=== PATIENT | male | born 1955 | race Hispanic/Latino ===

== ENCOUNTER 2017-03-17 10:33 | Outpatient (CLI) | payer BC ==
[2017-03-17 11:58] LABS: Anion Gap 11 mmol/L (10-20); BUN (Urea Nitrogen) 23 mg/dL (8.4-25.7); Calc. Creatinine Clearance 0 mL/min (70-130); Calcium 8.7 mg/dL (7.8-10.44); Carbon Dioxide 25 mmol/L (23-31); Chloride 108 mmol/L (98-107); Estimated GFR-MDRD 77
[2017-03-17 12:22] LABS: #Eosinphils 0.1 thou/uL (0.0-0.7); #Lymphocytes 1.1 thou/uL (1.20-3.40); #Monocytes 0.7 thou/uL (0.11-0.59); #Neutrophils 3.3 thou/uL (1.40-6.50); %Basophils 0.2 % (0.0-1.0); %Eosinophils 1.2 % (0.0-10.0); %Lymphocytes 20.8 % (21.0-51.0); %Monocytes 13.5 % (0.0-10.0); Hematocrit 23.4 % (42.0-52.0); Hypochromia MARKED = >30 cells (100X) (0-5/hpf); Mean Platelet Volume 8.5 fL (7.4-10.4); Microcytosis MODERATE=15-30 cells (100X) (0-5/hpf); Neutrophil 65 % (42-75); Ovalocytes MODERATE= 6-15 cells (100X) (0-1/hpf); Polychromasia SLIGHT = 2-3 cells (100X) (0-2/hpf); Red Blood Cell (RBC) Count 3.45 mill/uL (4.70-6.10); Schistocytes SLIGHT = 2-5 cells (100X) (0-1/hpf); White Blood Cell (WBC) Count 5.1 thou/uL (4.8-10.8)
[2017-03-18 10:19] LABS: Critical Call w/ Read Back 876274
== END 2017-03-17 10:34 | disposition home or self-care (01) ==
LOC: LABBT 10:33
PROVIDERS: ATTEND Specialist
DX: Z01.818 Encounter for other preprocedural examination (principal); K40.90 Unilateral inguinal hernia, without obstruction or gangrene, not specified as recurrent
CPT/HCPCS: 80048; 85025; 85060; 93005; 93010

== ENCOUNTER 2017-03-19 17:09 | Inpatient (IN) | payer BC ==
[2017-03-19 18:01] LABS: #Eosinphils 0.1 thou/uL (0.0-0.7); #Lymphocytes 1.2 thou/uL (1.20-3.40); #Monocytes 0.7 thou/uL (0.11-0.59); #Neutrophils 2.4 thou/uL (1.40-6.50); %Basophils 1.1 % (0.0-1.0); %Lymphocytes 26.8 % (21.0-51.0); %Monocytes 14.8 % (0.0-10.0); Hematocrit 22.3 % (42.0-52.0); Mean Platelet Volume 8.7 fL (7.4-10.4); Red Blood Cell (RBC) Count 3.31 mill/uL (4.70-6.10); White Blood Cell (WBC) Count 4.5 thou/uL (4.8-10.8)
[2017-03-19 18:23] LABS: ALT (SGPT) 34 U/L (8-55); AST (SGOT) 27 U/L (5-34); Alkaline Phosphatase 124 U/L (40-150); Anion Gap 10 mmol/L (10-20); BUN (Urea Nitrogen) 21 mg/dL (8.4-25.7); Bilirubin, Total 0.3 mg/dL (0.2-1.2); Calc. Creatinine Clearance 0 mL/min (70-130); Calcium 8.5 mg/dL (7.8-10.44); Carbon Dioxide 26 mmol/L (23-31); Chloride 109 mmol/L (98-107); Estimated GFR-MDRD 81; Globulin 3.2 g/dL (2.4-3.5); Protein, Total 6.8 g/dL (5.8-8.1)
[2017-03-19 19:16] LABS: Prothrombin Time 13.6 SEC (12.0-14.7)
[2017-03-19 21:09] LABS: IRF 0.477 Ratio (0.163-0.362); Reticulocyte Count 1.4 % (0.5-1.5)
[2017-03-19 21:19] LABS: Iron 14 ug/dL (65-175)
[2017-03-19 21:25] LABS: Troponin I Less than 0.010 ng/mL (< 0.028)
[2017-03-19 22:13] VITALS: BMI 33.5
--- NOTE | 2017-03-19 23:44 | HP ---
DATE OF ADMISSION: 03/19/2017 PRIMARY CARE PHYSICIAN: Dr. Castillo. PRIMARY SIDEROGRAPHER: Dr. Jani Weaver. CHIEF COMPLAINT: Abnormal labs. HISTORY OF PRESENT ILLNESS: Patient is a 62-year-old male with paroxysmal atrial fibrillation, on a nticoagulation, presented to the emergency room with abnormal labs. The patient is scheduled for inguinal surgery later this month. He underwent routine labs 2 days ag o that was consistent with hemoglobin 6.6. For this reason, he was advised to come to the emergency room for further workup. Patient has been complaining of exertional shortness of breath on bcvi-or-ylszvosk exertion. He als o had some nausea; however, denies any vomiting. He feels generally weak and fatigued. No hemateme sis, melena, hematoschezia reported. He denies any blood in the stool. No significant weight loss. No recent changes in his medications. He is currently off of aspirin and Xarelto since the 10th o f this month for prostate biopsy. In the emergency room, his initial vital signs showed temperature 98.3, respirations 19, pulse of 61 with a blood pressure 137/72 with O2 saturation 96% on room air. His repeat labs today showed hemo globin of 6.4 with MCV of 67.4, MCH of 19.4, RDW of 16.7 with reticulocyte of 1.4. His BUN was norm al. Stool for occult blood was negative. Blood transfusion has been ordered. PAST MEDICAL HISTORY: 1. Paroxysmal atrial fibrillation, currently on anticoagulation. 2. Hypertension. 3. Hyperlipidemia. 4. Obesity. 5. Enlarged prostate, currently followed by Dr. Sorto. Patient also has elevated PSA. 6. Coronary artery disease. 7. History of syncope while on amlodipine. 8. History of epididymitis, status post surgery. 9. Obstructive sleep apnea on CPAP. 10. Diverticulosis. PAST SURGICAL HISTORY: 1. Laparoscopic cholecystectomy. 2. Right epididymectomy. 3. TURP. 4. Right tympanoplasty. 5. Cardioversion. 6. Cardiac catheterization in 2006 that showed 50% mid LAD stenosis. The left main circumflex was normal. RCA showed 30% stenosis. 7. Colonoscopy in 2010 at [facility] that showed diverticulosis with some polyps. ALLERGIES: No known drug allergies. CURRENT HOME MEDICATIONS: 1. Amiodarone 200 mg in the morning and 100 mg bedtime. 2. Lisinopril 40 mg daily. 3. Hydralazine 150 mg b.i.d. 4. Aspirin 81 mg daily, currently on hold for prostate biopsy. 5. Xarelto 20 mg daily, currently on hold prostate biopsy. 6. Lipitor 80 mg at bedtime. 7. Coenzyme Q10 once daily. 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 He denies any histor y of smoking or drug use. He drinks alcohol very rarely. FAMILY HISTORY: Father in his 40s from coronary artery disease. He denies any history of colo vic malignancy. REVIEW OF SYSTEMS: The following complete review of systems was negative, unless otherwise mentione d in the HPI or below: Constitutional: Weight loss or gain, ability to conduct usual activities. Skin: Rash, itching. Eyes: Double vision, pain. ENT/Mouth: Nose bleeding, neck stiffness, pain, tenderness. Cardiovascular: Palpitations, dyspnea on exertion, orthopnea. Respiratory: Shortness of breath, wheezing, cough, hemoptysis, fever or night sweats. Gastrointestinal: Poor appetite, abdominal pain, heartburn, nausea, vomiting, constipation, or diar dina. Genitourinary: Urgency, frequency, dysuria, nocturia. Musculoskeletal: Pain, swelling. Neurologic/Psychiatric: Anxiety, depression. Allergy/Immunologic: Skin rash, bleeding tendency. PHYSICAL EXAMINATION: VITAL SIGNS: Showed temperature 98.3, respirations 19, pulse 61, blood pressure 137/72 with O2 satu ration 96% on room air. GENERAL: A 62-year-old male, in no apparent distress, denies any chest pain at this time. HEENT: Head: Atraumatic, normocephalic. Sclerae are anicteric. Moist mucous membranes. No oral lesion. NECK: Supple. No JVD appreciated. No carotid bruit. LUNGS: Clear to auscultation bilaterally. HEART: S1 and S2 present. Regular rate and rhythm. No murmurs, rubs, or gallops appreciated. ABDOMEN: Soft, nontender, bowel sounds present. EXTREMITIES: No edema or calf tenderness. NEUROLOGIC: Grossly nonfocal, moves all four extremities. PSYCHIATRY: Alert, awake, oriented x3. SKIN: Warm and dry. LYMPH NODES: No palpable lymph nodes in the neck. PERIPHERAL VASCULAR: Radial pulses palpable bilaterally. MUSCULOSKELETAL: No joint swelling or tenderness. LABORATORY FINDINGS AND X-RAY FINDINGS: 1. PT, INR, PTT in normal range. 2. BUN was 21, creatinine 0.94, sodium 141, potassium was 3.6. 3. Iron was 14 with TIBC 399. Stool for occult blood was negative. 4. Cardiac enzymes are pending at this time. IMPRESSION: 1. Symptomatic anemia, suspected secondary to chronic gastrointestinal blood loss. 2. Paroxysmal atrial fibrillation, currently on anticoagulation with Xarelto. Please note that Xar elto is currently on hold for prostate biopsy next week. 3. Coronary artery disease, currently on aspirin, which is on hold for prostate biopsy. 5. Hyperlipidemia. 6. Hypertension. 7. Generalized weakness with the exertional dyspnea secondary to #1. 8. Diverticulosis. 9. Obstructive sleep apnea, on CPAP. 10. Elevated PSA with benign prostatic hypertrophy, followed by Dr. Sorto. There is prostate bio psy planned for the next week. 11. Right and inguinal hernia. Plan for surgery on 03/30/2017, by Dr. Magallanes. PLAN: Patient will be monitored on the medical floor. A set of cardiac enzymes will be ordered carolyn ng with BNP. We will keep him n.p.o. past midnight. Start him on clear liquid diet. Consult Gastr oenterology. We will also start him on some iron supplementation. Other home medications including amiodarone will be restarted. Aspirin and Xarelto are currently on hold for prostate biopsy schedu led for the 03/23/2017. Plan of care was discussed with the patient and the family at the bedside. They stated melissain g. CODE STATUS: FULL CODE. SURROGATE DECISION MAKER: Patient makes his own decisions with the help of his family.
[2017-03-20] MEDS ORDERED: Ondansetron ODT 4 MG TAB PO PRN (00:29)
[2017-03-20] MEDS ORDERED: Acetaminophen 325 MG TAB PO PRN (00:29)
[2017-03-20] MEDS ORDERED: Nitroglycerin 0.4 MG TAB (25 Tab Bottle) PO PRN (00:29)
[2017-03-20] MEDS ORDERED: Senokot 8.6 MG TAB PO PRN (00:29)
[2017-03-20 05:17] LABS: Hematocrit 23.2 % (42.0-52.0)
[2017-03-20] MEDS ORDERED: FLU VACC QS2017-18 36 mo. & older 0.5 ML SYRINGE IM ONE (09:00)
[2017-03-20] MEDS: Lisinopril 10 MG TAB PO SCH ×2 (09:01→22:04)
[2017-03-20 09:25] LABS: Hematocrit 24.2 % (42.0-52.0)
[2017-03-20] MEDS: Pantoprazole 80 MG, Admixture Fee 1 EACH in Sodium Chloride 0.9% 100 ML IVP SCH (12:13)
--- NOTE | 2017-03-20 14:08 | PDOC.PN ---
- Subjective Encounter Start Date: 03/20/17 Encounter Start Time: 11:30 Subjective: no c/o bleeding per rectum -: recieved 2 units prbc's - Objective Resuscitation Status: Resuscitation Status FULL:Full Resuscitation MAR Reviewed: Yes Vital Signs & Weight: Vital Signs (12 hours) Temp Pulse Pulse Resp BP BP BP 03/20/17 09:01 59 L 107/53 L 03/20/17 08:00 97.8 F 59 L 18 03/20/17 07:35 97.8 F 59 L 16 107/53 L 03/20/17 04:20 97.3 F L 52 L 20 107/45 L 03/20/17 04:00 97.3 F L 52 L 20 107/45 L Pulse Ox 03/20/17 09:01 03/20/17 08:00 03/20/17 07:35 96 03/20/17 04:20 96 03/20/17 04:00 96 Weight Weight 214 lb I&O: 03/19/17 03/20/17 03/21/17 06:59 06:59 06:59 Intake Total 200 Balance 200 Result Diagrams: 03/20/17 09:14 03/19/17 17:36 Phys Exam - Physical Examination HEENT: PERRLA, moist MMs Neck: no JVD, supple Respiratory: no wheezing, no rales Cardiovascular: RRR, no significant murmur Gastrointestinal: soft, non-tender, positive bowel sounds Musculoskeletal: no edema, pulses present Neurological: non-focal, moves all 4 limbs Psychiatric: A&O x 3 Dx/Plan (1) Acute blood loss anemia Code(s): D62 - ACUTE POSTHEMORRHAGIC ANEMIA Status: Acute (2) CAD (coronary artery disease) Code(s): I25.10 - ATHSCL HEART DISEASE OF [place] CORONARY ARTERY W/O ANG PCTRS Status: Chronic Qualifiers: Coronary Disease-Associated Artery/Lesion type: [place] artery [place] vs. transplanted heart: [place] heart Associated angina: without angina Qualified Code(s): I25.10 - Atherosclerotic heart disease of [place] coronary artery without angina pectoris (3) BECKY (obstructive sleep apnea) Code(s): G47.33 - OBSTRUCTIVE SLEEP APNEA (ADULT) (PEDIATRIC) Status: Chronic (4) Afib Code(s): I48.91 - UNSPECIFIED ATRIAL FIBRILLATION Status: Chronic (5) Dyslipidemia Code(s): E78.5 - HYPERLIPIDEMIA, UNSPECIFIED Status: Chronic (6) Hypertension Code(s): I10 - ESSENTIAL (PRIMARY) HYPERTENSION Status: Chronic Qualifiers: Hypertension type: essential hypertension Qualified Code(s): I10 - Essential (primary) hypertension - Plan h/h has not improved despite 2 units prbc's -: d/w , keep pt npo -: prior colonoscopy in 2010 showed polyps and diverticulosis -: serial h/h, currently at 12/27 -: has severe iron def with ferritin of 6, is off xarelto from 2 days * . Review of Systems - Medications/Allergies Allergies/Adverse Reactions: Allergies Allergy/AdvReac Type Severity Reaction Status Date / Time No Known Allergies Allergy Verified 03/17/17 10:59 Medications: Current Medications Acetaminophen (Tylenol) 650 mg PO Q4H PRN PRN Reason: Headache/Fever or Pain Amiodarone HCl (Cordarone) 200 mg PO DAILY [facility] Last Admin: 03/20/17 09:05 Dose: Not Given Amiodarone HCl (Cordarone) 100 mg PO HS OTTO Atorvastatin Calcium (Lipitor) 80 mg PO HS OTTO Hydralazine HCl (Apresoline) 75 mg PO BID [facility] Last Admin: 03/20/17 09:01 Dose: Not Given Hydralazine HCl (Apresoline) 10 mg SLOW IVP Q4H PRN PRN Reason: SBP Greater Than 180 Pantoprazole Sodium 80 mg/Miscellaneous Medication 1 each/ Sodium Chloride 100 mls @ 10 mls/hr IVP INF [facility] Last Admin: 03/20/17 12:13 Dose: 100 mls Lisinopril (Zestril) 10 mg PO BID [facility] Last Admin: 03/20/17 09:01 Dose: Not Given Nitroglycerin (Nitrostat) 0.4 mg PO Q5MIN PRN PRN Reason: Chest Pain Ondansetron HCl (Zofran Odt) 4 mg PO Q6H PRN PRN Reason: Nausea/Vomiting Senna (Senokot) 2 tab PO HSPRN PRN PRN Reason: Constipation Sodium Chloride (Flush - Normal Saline) 10 ml IVF PRN PRN PRN Reason: Saline Flush Last Admin: 03/20/17 12:15 Dose: 10 ml
[2017-03-20] MEDS ORDERED: GoLYTELY 4,000 ml Bottle PO SCH (17:00)
--- NOTE | 2017-03-20 21:25 | CON ---
DATE OF CONSULTATION: 03/20/2017 REASON FOR CONSULTATION: Anemia. HISTORY OF PRESENT ILLNESS: Mr. Terry was admitted to the hospital last evening for severe anemia. He was apparently scheduled for routine inguinal hernia surgery later this month and underwent rou david labs couple of days ago and was found to have a hemoglobin of 6.6. His physician called him an d told him to come to the hospital for further evaluation. In retrospect, he notes he is having stehpani rtness of breath, profound fatigue, and exertional dyspnea for several weeks. He has had some nause a but no vomiting. He has had no melena, hematochezia, or hematemesis. He reports he had a colonos copy 4-5 years ago, which was normal. He has been on Xarelto for about 10 years now for atrial fibr illation. He has been off it since 03/16 for planned prostate biopsy. In the emergency room, he wa s hemodynamically stable with hemoglobin of 6.4 and MCV of 67. Stool occult blood was negative. He has been transfused. PAST MEDICAL HISTORY: 1. Paroxysmal AFib. 2. Hypertension. 3. Hyperlipidemia. 4. Obesity. 5. Enlarged prostate with a borderline biopsy a few months ago with plans for repeat biopsy and MRI coming up. 6. Coronary artery disease. 7. History of syncope, on Imuran in the past. 8. History of epididymitis with previous surgery. 9. History of BECKY. 10. Diverticulosis. PAST SURGICAL HISTORY: Cholecystectomy, right epididymectomy, TURP, right tympanoplasty, cardiovers ion, cardiac catheterization in 2006, colonoscopy in 2010, diverticulosis and adenoma as well as in 2010. An EGD in 2009 showed gastritis and also he had a pedunculated polyp 1.2 cm in size with high -grade dysplasia at that time. The colonoscopy in 2010 was a followup on that exam. MEDICATIONS: Amiodarone, atorvastatin, acetaminophen, hydralazine, lisinopril, Protonix drip, senna . At home, he is on hydralazine, CoQ10, Xarelto, Zestril, Lipitor, and amiodarone. PHYSICAL EXAMINATION: GENERAL: The patient is resting comfortably in bed with his at the bedside. He is in no distr ess. VITAL SIGNS: Pulse is 59, temperature 97, blood pressure 107/53. HEENT: His sclerae are clear, nonicteric, conjunctivae are pink. LUNGS: Clear. HEART: Regular rate and rhythm, without clicks or murmurs. ABDOMEN: Soft and nontender, without any palpable hepatosplenomegaly. EXTREMITIES: Reveal no clubbing, cyanosis, or edema. LABORATORY DATA: On admission, white count 4.5, hemoglobin 6.4, platelet count 306. The patient wa s transfused 2 units of blood and his hemoglobin is up to 7.4 this morning. INR was 1. The compreh ensive metabolic profile was normal on admission with a BUN and creatinine of 21 and 0.94. Stool oc cult blood negative on 03/19. ASSESSMENT: Microcytic anemia in the setting of chronic nonsteroidal anti-inflammatory drugs use, ludivina keyes history of polyps in 2010 and 2009. No active gastrointestinal symptoms. RECOMMENDATIONS: Upper and lower endoscopy tomorrow. There are no signs of acute gastrointestinal bleeding at this time, would stop the Protonix drip.
[2017-03-20] MEDS: Atorvastatin Calcium 40 MG TAB PO SCH (22:03)
[2017-03-21] MEDS: Pantoprazole 80 MG, Admixture Fee 1 EACH in Sodium Chloride 0.9% 100 ML IVP SCH (02:19)
[2017-03-21 05:54] LABS: Hematocrit 26.1 % (42.0-52.0)
[2017-03-21 06:29] LABS: Anion Gap 8 mmol/L (10-20); BUN (Urea Nitrogen) 17 mg/dL (8.4-25.7); Calc. Creatinine Clearance 116 mL/min (70-130); Calcium 8.4 mg/dL (7.8-10.44); Carbon Dioxide 27 mmol/L (23-31); Chloride 106 mmol/L (98-107); Estimated GFR-MDRD 87
[2017-03-21] MEDS: Lisinopril 10 MG TAB PO SCH ×3 (08:05→20:01)
[2017-03-21] MEDS ORDERED: Lidocaine 1% PF 5 ML VIAL ONE (10:24)
[2017-03-21] MEDS ORDERED: Propofol 200 MG/20 ML VIAL ONE (10:24)
[2017-03-21] MEDS ORDERED: Ondansetron HCl/PF 4 MG/2 ML Vial IVP PRN (10:49)
[2017-03-21] MEDS ORDERED: Promethazine HCl 25 MG/ML VIAL SLOW IVP PRN (10:49)
[2017-03-21] MEDS ORDERED: Promethazine HCl 25 MG/ML VIAL IM PRN (10:49)
[2017-03-21] MEDS ORDERED: Meperidine HCl/PF 25 MG/ML VIAL SLOW IVP PRN (10:49)
--- NOTE | 2017-03-21 12:03 | PDOC.PN ---
- Subjective Encounter Start Date: 03/21/17 Encounter Start Time: 08:35 Subjective: no riki gi bleed either upper or lower -: no sob - Objective Resuscitation Status: Resuscitation Status FULL:Full Resuscitation MAR Reviewed: Yes Vital Signs & Weight: Vital Signs (12 hours) Temp Pulse Resp BP BP Pulse Ox 03/21/17 11:34 155/80 H 03/21/17 11:31 45 L 155/80 H 03/21/17 08:00 97.7 F 56 L 18 03/21/17 07:37 97.7 F 52 L 18 132/80 97 03/21/17 04:00 98.2 F 50 L 20 130/72 97 03/21/17 00:34 97.6 F 57 L 20 108/62 96 Weight Weight 214 lb I&O: 03/20/17 03/21/17 03/22/17 06:59 06:59 06:59 Intake Total 200 3160 Balance 200 3160 Result Diagrams: 03/21/17 05:16 03/21/17 05:16 Phys Exam - Physical Examination HEENT: PERRLA, moist MMs Neck: no JVD, supple Respiratory: no wheezing, no rales Cardiovascular: RRR, no significant murmur Gastrointestinal: soft, non-tender, no distention, positive bowel sounds Musculoskeletal: no edema, pulses present Neurological: non-focal, moves all 4 limbs Psychiatric: A&O x 3 Dx/Plan (1) Acute blood loss anemia Code(s): D62 - ACUTE POSTHEMORRHAGIC ANEMIA Status: Acute (2) CAD (coronary artery disease) Code(s): I25.10 - ATHSCL HEART DISEASE OF [place] CORONARY ARTERY W/O ANG PCTRS Status: Chronic Qualifiers: Coronary Disease-Associated Artery/Lesion type: [place] artery [place] vs. transplanted heart: [place] heart Associated angina: without angina Qualified Code(s): I25.10 - Atherosclerotic heart disease of [place] coronary artery without angina pectoris (3) BECKY (obstructive sleep apnea) Code(s): G47.33 - OBSTRUCTIVE SLEEP APNEA (ADULT) (PEDIATRIC) Status: Chronic (4) Afib Code(s): I48.91 - UNSPECIFIED ATRIAL FIBRILLATION Status: Chronic (5) Dyslipidemia Code(s): E78.5 - HYPERLIPIDEMIA, UNSPECIFIED Status: Chronic (6) Hypertension Code(s): I10 - ESSENTIAL (PRIMARY) HYPERTENSION Status: Chronic Qualifiers: Hypertension type: essential hypertension Qualified Code(s): I10 - Essential (primary) hypertension - Plan has severe iron def anemia, unclear source -: for EGD and colonoscopy today -: Hb around 7.9g after 2 units of prbc -: check h/h in am, if stable may dc home -: oral iron * . Review of Systems - Medications/Allergies Allergies/Adverse Reactions: Allergies Allergy/AdvReac Type Severity Reaction Status Date / Time No Known Allergies Allergy Verified 03/17/17 10:59 Medications: Current Medications Acetaminophen (Tylenol) 650 mg PO Q4H PRN PRN Reason: Headache/Fever or Pain Amiodarone HCl (Cordarone) 200 mg PO DAILY [facility] Last Admin: 03/21/17 08:04 Dose: Not Given Atorvastatin Calcium (Lipitor) 80 mg PO HS [facility] Last Admin: 03/20/17 22:03 Dose: 80 mg Fentanyl (Pacu-Sublimaze) 50 mcg SLOW IVP Q10MIN PRN PRN Reason: Moderate to Severe Pain (6-10) Stop: 03/21/17 13:49 Hydralazine HCl (Apresoline) 75 mg PO BID [facility] Last Admin: 03/21/17 11:31 Dose: Not Given Hydralazine HCl (Apresoline) 10 mg SLOW IVP Q4H PRN PRN Reason: SBP Greater Than 180 Lisinopril (Zestril) 10 mg PO BID [facility] Last Admin: 03/21/17 11:34 Dose: 10 mg Meperidine HCl (Pacu-Demerol) 12.5 mg SLOW IVP ONE PRN PRN Reason: Shivering Stop: 03/21/17 13:49 Nitroglycerin (Nitrostat) 0.4 mg PO Q5MIN PRN PRN Reason: Chest Pain Ondansetron HCl (Zofran Odt) 4 mg PO Q6H PRN PRN Reason: Nausea/Vomiting Ondansetron HCl (Pacu-Zofran) 4 mg IVP ONE PRN PRN Reason: Nausea/Vomiting Stop: 03/21/17 13:49 Pantoprazole Sodium (Protonix) 40 mg PO DAILY [facility] Promethazine HCl (Pacu-Phenergan) 6.25 mg SLOW IVP ONE PRN PRN Reason: Nausea/Vomiting Stop: 03/21/17 13:49 Promethazine HCl (Pacu-Phenergan) 6.25 mg IM ONE PRN PRN Reason: Nausea/Vomiting Stop: 03/21/17 13:49 Senna (Senokot) 2 tab PO HSPRN PRN PRN Reason: Constipation Sodium Chloride (Flush - Normal Saline) 10 ml IVF PRN PRN PRN Reason: Saline Flush
[2017-03-21] MEDS: Ferrous Sulfate 325 MG TAB PO SCH (16:52)
--- NOTE | 2017-03-21 17:40 | OP ---
PREPROCEDURE DIAGNOSES: 1. Iron deficiency anemia, severe. 2. Chronic anticoagulation with Xarelto. POSTPROCEDURE DIAGNOSES: 1. Normal esophagogastroduodenoscopy except for a small hiatal hernia. 2. Colonoscopy notable for a 1 cm and 0.5 cm polyps in the distal descending and proximal sigmoid c olon, removed by snare polypectomy and submitted to pathology. RECOMMENDATIONS: 1. Repeat colonoscopy in 3 years. 2. Iron supplementation daily. ANESTHESIA: TIVA. PROCEDURE IN DETAIL: After the patient was informed of the risks, benefits, possible complications of endoscopy including perforation, bleeding, reactions to medication and aspiration, informed conse nt was obtained. The patient brought to endoscopy suite where he was sedated in gradual fashion. O nce he was comfortable, a bite block was placed in the incisural orifice. The endoscope was advance d through the esophagus, stomach and second and third portion of duodenum and slowly removed. There was good visualization of mucosa. The esophagus, stomach, and duodenum were normal in the second a nd third portions. There were no bleeding sites identified. Retroflexed views in the stomach were normal except for a small hiatal hernia. The scope was removed. The patient was turned in the room. A rectal exam was performed which was normal. The endoscope wa s advanced through anal canal through the colon to cecum was identified by ileocecal valve and appen diceal orifice. Prep was good. There was a 1-cm slightly ulcerated polyp in the proximal sigmoid o r distal descending colon was removed by snare polypectomy and submitted to pathology. Another poly p was found in sigmoid colon about 30 cm, removed by snare polypectomy, it was about 5 mm in size, a nd it was also submittted. There were large internal hemorrhoids on retroflexion. No other lesions were seen. The scope was removed. The patient tolerated the procedure well with no complications.
[2017-03-21] MEDS: Atorvastatin Calcium 40 MG TAB PO SCH (20:01)
[2017-03-22 06:24] LABS: Anion Gap 10 mmol/L (10-20); BUN (Urea Nitrogen) 20 mg/dL (8.4-25.7); Calc. Creatinine Clearance 118 mL/min (70-130); Carbon Dioxide 26 mmol/L (23-31); Chloride 107 mmol/L (98-107); Estimated GFR-MDRD 88
[2017-03-22 06:30] LABS: Anisocytosis SLIGHT = 6-15 cells (100X) (0-5/hpf); Band 2 % (5-11); Hematocrit 24.5 % (42.0-52.0); Hypochromia MODERATE=16-30 cells (100X) (0-5/hpf); Mean Platelet Volume 9.2 fL (7.4-10.4); Microcytosis SLIGHT = 6-15 cells (100X) (0-5/hpf); Neutrophil 66 % (42-75); Reactive Lymphocytes 1 % (0-10); Red Blood Cell (RBC) Count 3.44 mill/uL (4.70-6.10); White Blood Cell (WBC) Count 5.4 thou/uL (4.8-10.8)
[2017-03-22] MEDS ORDERED: Iron Sucrose Complex 200 MG, Admixture Fee 1 EACH in Sodium Chloride 0.9% 250 ML 250 ML IVPB SCH (07:45)
[2017-03-22] MEDS: Lisinopril 10 MG TAB PO SCH (09:48)
[2017-03-22] MEDS: Ferrous Sulfate 325 MG TAB PO SCH (09:48)
--- NOTE | 2017-03-22 11:51 | PRG ---
DATE OF SERVICE: 03/22/2017 Mr. Terry has had no overt bleeding. He is receiving some IV iron now. He reports he had a bowel movement earlier today. PHYSICAL EXAMINATION: VITAL SIGNS: Temperature is 97, pulse 62, blood pressure 132/76. ABDOMEN: Soft, nontender. LABORATORY STUDIES: Hemoglobin 7.5, white count 5.4, platelet count 226. ASSESSMENT: 1. New onset of anemia likely related to anticoagulation. The patient was heme positive this admiss ion. 2. Underwent upper and lower endoscopy with a 1 cm polyp and a 5 mm polyp in the colon removed by venessa monzon polypectomy. Pathology is pending. RECOMMENDATIONS: I agree the patient can be discharged home. We will follow up pathology in the out patient clinic. I have recommended he have a repeat colonoscopy in 3 years with regard to his prior history of colon polyps.
[2017-03-22 13:17] VITALS: BP 140/80; TEMP 97.8
--- NOTE | 2017-03-22 13:43 | DIS ---
DATE OF ADMISSION: 03/19/2017 DATE OF DISCHARGE: 03/22/2017 PRIMARY CARE PHYSICIAN: Igor Castillo M.D. DISCHARGE DISPOSITION: Home. PRIMARY DISCHARGE DIAGNOSIS: Symptomatic anemia, status post 2 unit transfusion. SECONDARY DISCHARGE DIAGNOSES: Chronic paroxysmal atrial fibrillation, coronary artery disease, chronic anticoagulation, dyslipidemia, hypertension, chronic iron deficiency anemia due to chronic blood loss, obesity with body mass index 33, and obstructive sleep apnea. PRIMARY PROCEDURE/OPERATION: Dr. Esqueda did upper endoscopy and patient is found with normal esophagogastroduodenoscopy and normal colonoscopy. SIGNIFICANT LABORATORY DATA: WBC 5.4, hemoglobin 7.5, platelets 226. INR 1.0, sodium 139, potassium 3.5, BUN 20, creatinine 0.87, and calcium 8.0. Ferritin 6.32. Iron 14, TIBC 399, BNP 33.4, B12 325, folic acid 9.30. Stool for guaiac negative. DISCHARGE MEDICATIONS: Ferrous sulfate 325 mg p.o. b.i.d., Protonix 40 mg p.o. daily, amiodarone 200 mg p.o. daily and 100 mg p.o. at bedtime, Lipitor 80 mg p.o. at bedtime, lisinopril 40 mg p.o. daily, Coenzyme Q10 one capsule p.o. daily, hydralazine 150 mg p.o. b.i.d. Currently, the patient is on hold for aspirin and Xarelto therapy because he has planned for prostate biopsy next week. At this point, patient is advised to continue to hold until procedure is done and after procedure when Urology okay, then this medication can be restarted. CONTRAINDICATIONS: None. CODE STATUS: FULL CODE. INPATIENT REMOTELY OPERATED VEHICLE: Dr. Esqueda was following while in hospital who did upper endoscopy. TEST RESULTS PENDING ON DISCHARGE: None. ALLERGIES: No known drug allergy. DISCHARGE PLAN: Post hospital, the patient will follow up with Dr. Esqueda in 2 weeks. The patient will make appointment with Dr. Castillo as advised. The patient will follow up with Dr. Weaver. HOSPITAL COURSE: A 62-year-old male who was admitted by Dr. Navid Urias. Please see his H\T\P for further details. This patient was having very low hemoglobin and he was having symptoms of iron deficiency anemia and that is why he was admitted to medical floor. During this admission, he was treated with IV blood transfusion to 2 units and his hemoglobin remained pretty much stable. His stool for guaiac was negative, but we consulted GI for procedure. He had normal upper endoscopy and only found with mild small hiatal hernia and colonoscopy showed only colon polyp and polypectomy was performed. Pathology report is pending. Patient hemoglobin and hematocrit has pretty much remained stable without any significant drop and GI has no further recommendations at this point. Before discharge, I gave him once bag of iron sucrose and we advised about iron rich food as well as iron supplement. We also prescribed Protonix therapy. The rest of medication was continued as per previous. If the patient is seen and examined at bedside today, plan of care discussed with the patient and patient's extensively at bedside. All review of systems reviewed with him and negative. PHYSICAL EXAMINATION: Currently, temperature 97.8, pulse 58, respiratory rate 20, saturation 97%, blood pressure 140/80. Weight what 214 pounds. GENERAL: The patient is currently alert, awake, no acute distress. HEAD: Normocephalic, atraumatic. EYES: Pupils round, reactive to light. Extraocular muscles intact. ENT: Oropharynx within normal limits. Moist mucous membranes. No oral lesions. No pharyngeal erythema, no exudate. NECK: Supple. Range of motion is normal. LUNGS: Clear. CARDIAC: S1, S2 regular without any murmur. ABDOMEN: Soft and benign. EXTREMITIES: No edema. NEUROLOGIC: Nonfocal examination. Overall, the patient is medically stable for discharge today. Total time spent on discharge day more than 30 minutes. MTDD
== END 2017-03-22 13:26 | disposition home or self-care (01) | DRG 812 ==
LOC: ERS 17:09 → T4-B 20:00 → OBSVTOIN 20:00
PROVIDERS: ADMIT Internal Medicine Infectious Disease; ATTEND Internal Medicine Infectious Disease
PROC: 30233N1 Transfusion of Nonautologous Red Blood Cells into Peripheral Vein, Percutaneous Approach (ICD-10-PCS; 2017-03-19)
PROC: 0DJ08ZZ Inspection of Upper Intestinal Tract, Via Natural or Artificial Opening Endoscopic (ICD-10-PCS; principal; 2017-03-21)
PROC: 0DBM8ZZ Excision of Descending Colon, Via Natural or Artificial Opening Endoscopic (ICD-10-PCS; 2017-03-21)
PROC: 0DBN8ZZ Excision of Sigmoid Colon, Via Natural or Artificial Opening Endoscopic (ICD-10-PCS; 2017-03-21)
DX: D50.9 Iron deficiency anemia, unspecified (principal); I10 Essential (primary) hypertension; D62 Acute posthemorrhagic anemia; T45.515A Adverse effect of anticoagulants, initial encounter; I48.0 Paroxysmal atrial fibrillation; Z79.01 Long term (current) use of anticoagulants; I25.10 Atherosclerotic heart disease of native coronary artery without angina pectoris; E66.9 Obesity, unspecified; Z68.33 Body mass index [BMI] 33.0-33.9, adult; E78.5 Hyperlipidemia, unspecified; R97.20 Elevated prostate specific antigen [PSA]; N40.0 Benign prostatic hyperplasia without lower urinary tract symptoms; G47.33 Obstructive sleep apnea (adult) (pediatric); K64.8 Other hemorrhoids; K44.9 Diaphragmatic hernia without obstruction or gangrene; K63.5 Polyp of colon; K57.90 Diverticulosis of intestine, part unspecified, without perforation or abscess without bleeding
CPT/HCPCS: 36415; 36430; 80048; 80053; 82274; 82553; 82607; 82728; 82746; 83540; 83550; 83880; 84484; 85014; 85018; 85025; 85046; 85049; 85610; 85730; 86850; 86900; 86901; 88305; 90471; 90682; 94760; C9113; G0008; J1756; J2001; J2704; J7050; P9016; Q2036

== ENCOUNTER 2017-03-30 13:48 | Outpatient (CLI) | payer BC ==
--- NOTE | 2017-03-30 19:40 | MRI ---
MRI PELVIS WITH AND WITHOUT IV CONTRAST 03/30/17 INDICATION: History of prostate biopsy in August 2016 with report of acinar proliferation of the prostate. TECHNIQUE: Multiplanar and multisequence MR images were obtained of the pelvis utilizing a prostate cancer prot ocol. 20 mL of Multihance was utilized for the examination. No comparisons are available. FINDINGS: The prostate measures 5.2 x 4.1 x 5.3 cm giving a total volume of 58.8 mL. There is a TURP defect wi thin the central and upper aspect of the prostate gland. There is prominent fat containing inguinal hernias, right greater than left, with the right inguinal hernia containing portions of the bladder. There is a 2.2 x 2.1 cm region of restricted diffusion and diminished signal on the ADC involving th e peripheral zone of the lateral left base, mid and apex of the prostatic gland with abnormal dynami c contrast enhancement suspicious for malignancy. This lesion involves greater than 1.5 cm of the pr ostatic capsule and is suspicious for extracapsular extension and left sided neurovascular involveme nt. No abnormal T2 signal abnormality is seen within the central prostate. There is an 8 mm left external iliac lymph node present. There is a left 7.6 mm left external iliac lymph node present. There is a 5 mm right obturator lymph node present. No definite abnormal marrow signal abnormality is noted. IMPRESSION: 1. PI-RADS 5: Very high (clinically significant cancer is highly likely to be present). 2. There is a 2.2 cm area of diminished T2 signal and ADC signal involving the lateral peripher al zone of the left prostatic gland within its base, mid and apical regions suspicious for malignanc y. Due to the size of the lesion, there is concern for left sided extracapsular extension and neurov ascular involvement. There are prominent lymph nodes seen within the left obturator region and along the left internal iliac chains suspicious for malignant involvement. 3. Prostate enlargement. 4. Bilateral inguinal hernias with the right inguinal hernia containing fat and portions of the bladder. POS: BISI
== END 2017-03-30 13:49 | disposition home or self-care (01) ==
LOC: TBSIIMAG 13:48
PROVIDERS: ATTEND Urology
DX: N42.32 Atypical small acinar proliferation of prostate (principal); N40.0 Benign prostatic hyperplasia without lower urinary tract symptoms; K40.90 Unilateral inguinal hernia, without obstruction or gangrene, not specified as recurrent
CPT/HCPCS: 72197

== ENCOUNTER 2017-04-06 14:35 | Outpatient (CLI) | payer BC ==
[2017-04-06 16:41] LABS: Bilirubin Negative (Negative); Blood, Urine Negative (Negative); Glucose, Urine (Dipstick) Negative (Negative); Ketone, Urine Negative (Negative); Nitrite Negative (Negative); Protein, Urine (Dipstick) Negative (Neg-Trace); Urobilinogen 0.2 mg/dL (0.2-1.0)
[2017-04-06 16:44] LABS: Bacteria/HPF None Seen HPF (None Seen); Hyaline Casts/LPF 4-6 HYALINE CAST LPF (0-3 Hyaline); RBC/HPF 0-3 HPF (0-3); Squamous Epithelial 0-3 HPF (0-3); WBC/HPF 21-50 HPF (0-3)
== END 2017-04-06 14:36 | disposition home or self-care (01) ==
LOC: LABBT 14:35
PROVIDERS: ATTEND Specialist
DX: Z01.818 Encounter for other preprocedural examination (principal); K40.90 Unilateral inguinal hernia, without obstruction or gangrene, not specified as recurrent
CPT/HCPCS: 81001; 87077; 87086; 93005; 93010

== ENCOUNTER 2017-04-09 09:57 | Day surgery (SDC) | payer BC ==
[2017-04-06 14:38] VITALS: BMI 34.4
[2017-04-06 16:38] LABS: Hematocrit 33.1 % (42.0-52.0); Mean Platelet Volume 9.7 fL (7.4-10.4); Red Blood Cell (RBC) Count 4.27 mill/uL (4.70-6.10); White Blood Cell (WBC) Count 6.1 thou/uL (4.8-10.8)
[2017-04-06 16:52] LABS: PTT 27.3 SEC (22.9-36.1); Prothrombin Time 13.6 SEC (12.0-14.7)
[2017-04-06 17:05] LABS: Anion Gap 12 mmol/L (10-20); BUN (Urea Nitrogen) 17 mg/dL (8.4-25.7); Calc. Creatinine Clearance 122 mL/min (70-130); Calcium 8.7 mg/dL (7.8-10.44); Carbon Dioxide 25 mmol/L (23-31); Chloride 104 mmol/L (98-107); Estimated GFR-MDRD 90
[2017-04-09] MEDS ORDERED: Ketorolac Tromethamine 30 MG/ML VIAL ONE (11:10)
== END 2017-04-09 11:42 | disposition home or self-care (01) ==
LOC: SDC 09:57
PROVIDERS: ATTEND Specialist
DX: K40.90 Unilateral inguinal hernia, without obstruction or gangrene, not specified as recurrent (principal); N42.32 Atypical small acinar proliferation of prostate; I25.10 Atherosclerotic heart disease of native coronary artery without angina pectoris; E78.00 Pure hypercholesterolemia, unspecified; I48.91 Unspecified atrial fibrillation; I10 Essential (primary) hypertension; J30.9 Allergic rhinitis, unspecified; G47.33 Obstructive sleep apnea (adult) (pediatric); E66.9 Obesity, unspecified; Z53.8 Procedure and treatment not carried out for other reasons; Z68.34 Body mass index [BMI] 34.0-34.9, adult; Z79.01 Long term (current) use of anticoagulants; Z79.82 Long term (current) use of aspirin; Z79.899 Other long term (current) drug therapy; Z90.49 Acquired absence of other specified parts of digestive tract; Z90.79 Acquired absence of other genital organ(s); Z82.49 Family history of ischemic heart disease and other diseases of the circulatory system; Z99.89 Dependence on other enabling machines and devices
CPT/HCPCS: J0131; J1885

== ENCOUNTER 2017-04-19 10:23 | Outpatient (CLI) | payer BC ==
[2017-04-19 13:33] LABS: Anion Gap 16 mmol/L (10-20); BUN (Urea Nitrogen) 16 mg/dL (8.4-25.7); Calc. Creatinine Clearance 0 mL/min (70-130); Calcium 8.6 mg/dL (7.8-10.44); Carbon Dioxide 23 mmol/L (23-31); Chloride 106 mmol/L (98-107); Estimated GFR-MDRD 79
[2017-04-19 13:52] LABS: #Eosinphils 0.1 thou/uL (0.0-0.7); #Lymphocytes 1.2 thou/uL (1.20-3.40); #Monocytes 0.6 thou/uL (0.11-0.59); #Neutrophils 3.8 thou/uL (1.40-6.50); %Basophils 0.6 % (0.0-1.0); %Eosinophils 1.6 % (0.0-10.0); %Lymphocytes 21.2 % (21.0-51.0); %Monocytes 10.5 % (0.0-10.0); Anisocytosis SLIGHT = 6-15 cells (100X) (0-5/hpf); Hematocrit 35.1 % (42.0-52.0); Hypochromia SLIGHT = 6-15 cells (100X) (0-5/hpf); Mean Platelet Volume 5.3 fL (7.4-10.4); Microcytosis SLIGHT = 6-15 cells (100X) (0-5/hpf); Ovalocytes SLIGHT = 2-5 cells (100X) (0-1/hpf); Red Blood Cell (RBC) Count 4.39 mill/uL (4.70-6.10); White Blood Cell (WBC) Count 5.7 thou/uL (4.8-10.8)
[2017-04-19 14:03] LABS: Bilirubin Negative (Negative); Blood, Urine Negative (Negative); Glucose, Urine (Dipstick) Negative (Negative); Ketone, Urine Negative (Negative); Nitrite Negative (Negative); Protein, Urine (Dipstick) Negative (Neg-Trace); Urobilinogen 0.2 mg/dL (0.2-1.0)
[2017-04-19 14:05] LABS: Bacteria/HPF None Seen HPF (None Seen); Hyaline Casts/LPF 0-3 HYALINE CAST LPF (0-3 Hyaline); RBC/HPF 0-3 HPF (0-3); Squamous Epithelial None Seen HPF (0-3); WBC/HPF 0-3 HPF (0-3)
[2017-04-19 14:24] LABS: Prothrombin Time 13.1 SEC (12.0-14.7)
== END 2017-04-19 10:24 | disposition home or self-care (01) ==
LOC: LABBT 10:23
PROVIDERS: ATTEND Specialist
DX: Z01.818 Encounter for other preprocedural examination (principal); K40.90 Unilateral inguinal hernia, without obstruction or gangrene, not specified as recurrent
CPT/HCPCS: 80048; 81001; 85025; 85610; 85730; 87086

== ENCOUNTER 2017-04-23 10:04 | Day surgery (SDC) | payer BC ==
[2017-04-19 10:53] VITALS: BMI 34.2
[2017-04-23] MEDS ORDERED: Ketorolac Tromethamine 30 MG/ML VIAL ONE (10:20)
[2017-04-23] MEDS ORDERED: Levofloxacin 500 mg/D5W 100 ml Premix Bag ONE (10:20)
[2017-04-23] MEDS ORDERED: metroNIDAZOLE 500 MG in Premix Bag 1 BAG IVPB SCH (10:30)
[2017-04-23] MEDS ORDERED: Bupivacaine/Epinephrine 0.25% 30 ML VIAL ONE (11:54)
[2017-04-23] MEDS ORDERED: Fentanyl 250 MCG/5 ML VIAL ONE (12:16)
[2017-04-23] MEDS ORDERED: Bupivacaine PF 0.5% 30 ML VIAL ONE (12:54)
[2017-04-23] MEDS ORDERED: Ondansetron HCl/PF 4 MG/2 ML Vial ONE (12:55)
[2017-04-23] MEDS ORDERED: Glycopyrrolate 0.2 MG/ML 5 ML SYRINGE ONE (12:55)
[2017-04-23] MEDS ORDERED: Lidocaine 2% PF 10 ML AMP (For Epidural Use) ONE (12:55)
[2017-04-23] MEDS ORDERED: Propofol 200 MG/20 ML VIAL ONE (12:55)
[2017-04-23] MEDS ORDERED: SUGAMMADEX SODIUM 200 MG/2 ML VIAL ONE (14:30)
[2017-04-23] MEDS ORDERED: Promethazine HCl 25 MG/ML VIAL ONE (14:47)
[2017-04-23] MEDS ORDERED: Fentanyl 100 MCG/2 ML VIAL ONE (14:55)
[2017-04-23] MEDS ORDERED: HYDROcodone/Acetaminophen 5/325 mg Tablet ONE (16:26)
--- NOTE | 2017-04-25 13:11 | OP ---
DATE OF PROCEDURE: 04/23/2017 PREOPERATIVE DIAGNOSIS: Right inguinal hernia. POSTOPERATIVE DIAGNOSIS: Large direct inguinal hernia, unusual lateral indirect inguinal hernia. OPERATION PERFORMED: Repair of two separate hernias with 2 separate large mesh plugs and subsequent patch placement. SURGEON: Cong Magallanes M.D. ANESTHESIA: General endotracheal. INDICATIONS: The patient is a 62-year-old male with significant central adiposity. He has a visible and palpable right inguinal hernia and is taken to the operating room at this time for repa ir. He also has a concerning prostate examination for which Dr. Sorto, his urologist, has recommen ded ultrasound guided prostate biopsy and this will be performed simultaneously under the same anesth etic. DESCRIPTION OF OPERATION: Informed consent was obtained. The patient was taken to the operating day m where general endotracheal anesthesia was obtained with the patient in supine position. Right groi n was prepped with ChloraPrep and draped in sterile fashion. Local anesthetic was infiltrated using 0.25% Marcaine with epinephrine. Oblique right inguinal incision was created. Dissection was kassidy d through skin and subcutaneous tissue. There was abundant adipose tissue in this area and the fasci a was several centimeters below the skin. The fascia was identified and opened parallel to its fiber s so as to open the external ring. The external oblique was elevated superiorly and inferiorly and d issection was carried out within the canal. The spermatic cord was dissected circumferentially and c ontrolled with a [place] drain. I carefully explored the inguinal canal. I was able to identify a l arge direct inguinal hernia. This was dissected free from the remainder of the cord structures. Thi s was found to emanate from a well-defined opening that was only about 2-2.5 cm in diameter, well sep arated from the internal ring. The hernia sac was dissected circumferentially with cautery and I was able to invert into the preperitoneal space. A large mesh plug was secured to the apex of the herni a sac and the complex was inverted in the preperitoneal space and the plug was secured to surrounding fascial structures with several interrupted sutures of 2-0 Vicryl. One imbricating suture was place d as well. The cord was examined and found to be without a true indirect hernia within it or being dominant cord lipomas. A small amount of fat, there was a small cord lipoma was excised. It was noted that there was an abnormality lateral to the internal ring and this appeared to be another hernia as I dissecte d this that proved to be a second fascial defect lateral to the internal ring that had a clear hernia sac of significant size. This was also dissected circumferentially and I was able to invert this in to the preperitoneal space as well. I therefore obtained a second large plug and secured this to the apex of the second, lateral hernia sac and this complex was inverted into the preperitoneal space an d this was also secured to surrounding fascial structures with interrupted sutures of 2-0 Vicryl and a couple of imbricating sutures were placed. Mesh patch was then obtained, trimmed to appropriate size and placed within the floor of the inguinal canal and was secured to surrounding structures with interrupted sutures of 2-0 Vicryl. At this point, an ON-Q pain pump was obtained and tunneled into wound from superiorly. It was positi oned such that I passed it through the mesh as it extended down towards the tubercle. This flushed e asily. The fascia was then closed with a running suture of 3-0 Vicryl. The remainder of the wound w as closed in layers with 3-0 and 4-0 Monocryl. Dermabond was placed externally. At the pain pump exit site, Dermabond was placed over the catheter at the exiting site. A sterile oc clusive dressing was placed over the quilt catheter and the catheter was secured to the reservoir for which had 120 mL of 0.5% plain Marcaine. There were no complications. Blood loss was negligible. The patient tolerated the procedure well an d was taken to recovery room in stable condition.
== END 2017-04-23 17:30 | disposition home or self-care (01) ==
LOC: SDC 10:04
PROVIDERS: ATTEND Specialist
PROC: 0VB03ZX Excision of Prostate, Percutaneous Approach, Diagnostic (ICD-10-PCS; principal; 2017-04-23)
PROC: 0YU50JZ Supplement Right Inguinal Region with Synthetic Substitute, Open Approach (ICD-10-PCS; principal; 2017-04-23)
DX: K40.90 Unilateral inguinal hernia, without obstruction or gangrene, not specified as recurrent (principal); C61 Malignant neoplasm of prostate; I25.10 Atherosclerotic heart disease of native coronary artery without angina pectoris; E66.9 Obesity, unspecified; E78.00 Pure hypercholesterolemia, unspecified; G47.33 Obstructive sleep apnea (adult) (pediatric); Z99.89 Dependence on other enabling machines and devices; Z82.49 Family history of ischemic heart disease and other diseases of the circulatory system
CPT/HCPCS: 88305; 96374; A4306; C1781; J0131; J1885; J1956; J2001; J2405; J2550; J2704; J3010; S0020

== ENCOUNTER 2017-05-18 08:56 | Outpatient (CLI) | payer BC ==
--- NOTE | 2017-05-18 14:01 | NM ---
NUCLEAR MEDICINE BONE SCAN: History: 62-year-old male with history of prostate CA with rising PSA. Technique: Patient was injected with 33 mCi Technetium 99M MPD intravenously. FINDINGS: Whole body images demonstrates no focal areas of abnormal or altered osteogenesis. There is bilateral renal and bladder activity. There is some very mild degenerative type changes within multiple joints . No scan evidence for metastasis. IMPRESSION: Mild degenerative changes. No scan evidence for metastasis. POS: BISI
== END 2017-05-18 08:57 | disposition home or self-care (01) ==
LOC: NM 08:56
PROVIDERS: ATTEND Urology
DX: C61 Malignant neoplasm of prostate (principal)
CPT/HCPCS: 78306; A9503

== ENCOUNTER 2017-08-05 09:57 | Outpatient (CLI) | payer OTHER | END 2017-08-05 09:58 | disposition home or self-care (01) | LOC: BICRAD 09:57 | PROVIDERS: ATTEND Internal Medicine Cardiovascular Disease | DX: R06.02 Shortness of breath (principal); Z82.49 Family history of ischemic heart disease and other diseases of the circulatory system | CPT/HCPCS: 71046 ==

== ENCOUNTER 2017-10-24 10:58 | Observation (INO) | payer OTHER ==
[2017-10-24 11:35] LABS: Hemoglobin 12.9 g/dL (14.0-18.0); Mean Corpuscular HGB CONC 34.5 g/dL (32.0-36.0); Mean Corpuscular Volume 95.7 fl (80.0-94.0); Mean Platelet Volume 6.3 fL (7.4-10.4); Platelet Count 176 thou/uL (130-400); Red Blood Cell (RBC) Count 3.92 mill/uL (4.70-6.10); White Blood Cell (WBC) Count 4.6 thou/uL (4.8-10.8)
[2017-10-24 11:55] LABS: ALT (SGPT) 69 U/L (8-55); AST (SGOT) 49 U/L (5-34); Albumin 3.8 g/dL (3.4-4.8); Alkaline Phosphatase 105 U/L (40-150); Anion Gap 11 mmol/L (10-20); BUN (Urea Nitrogen) 26 mg/dL (8.4-25.7); Bilirubin, Total 0.6 mg/dL (0.2-1.2); CK (CPK) 126 U/L (30-200); Calc. Creatinine Clearance 0 mL/min (70-130); Calcium 8.9 mg/dL (7.8-10.44); Carbon Dioxide 26 mmol/L (23-31); Chloride 103 mmol/L (98-107); Estimated GFR-MDRD 87; Glucose 91 mg/dL (80-115); Potassium 3.1 mmol/L (3.5-5.1); Protein, Total 6.8 g/dL (5.8-8.1)
[2017-10-24 11:57] LABS: Band 5 % (5-11); Eosinophils 1 % (0-10); Lymphocytes 11 % (21-51); MDiff Complete? YES; Monocytes 4 % (0-10); Neutrophil 77 % (42-75); Reactive Lymphocytes 2 % (0-10)
[2017-10-24 11:59] LABS: CKMB 1.3 ng/mL (0-6.6); Troponin I Less than 0.010 ng/mL (< 0.028)
[2017-10-24 12:08] LABS: Sodium 137 mmol/L (136-145)
[2017-10-24] MEDS ORDERED: Potassium Chloride 20 MEQ TAB ONE (12:28)
[2017-10-24] MEDS ORDERED: ISOVUE-370 76%-LOCM 1 ML ONE (12:32)
--- NOTE | 2017-10-24 13:04 | RAD ---
PORTABLE CHEST: Date: 10/24/17 HISTORY: Chest pain and shortness of breath. COMPARISON: 12/15/15. FINDINGS: Heart size is enlarged. There is elevation of the right hemidiaphragm with some atelectatic changes i n the right base, probably chronic in nature related to the elevation of the diaphragm. No focal infi ltrates or signs of overt failure. IMPRESSION: Marked cardiomegaly without signs of failure. POS: BISI
--- NOTE | 2017-10-24 14:04 | CT ---
CT ANGIO OF CHEST PERFORMED WITH IV CONTRAST ENHANCEMENT WITH 3D RECONSTRUCTIONS: Date: 10/24/17 HISTORY: Chest pain and shortness of breath while doing yard work. History of atrial fibrillation. FINDINGS: The lungs are clear of any infiltrative process. There is some scarring in the right lung. No pulmona ry nodules. No pleural effusions or signs for failure. Coronary artery calcifications are noted. The thoracic aorta is normal in caliber. There is fairly good pulmonary artery opacification. There i s no CT evidence for pulmonary embolus. The right hemidiaphragm is elevated. The visualized liver parenchyma shows no focal findings. The gal lbladder has been removed. Right and left adrenal glands are normal. IMPRESSION: No CT evidence for pulmonary embolus. POS: BISI
[2017-10-24] MEDS ORDERED: Senokot 8.6 MG TAB PO PRN (15:18)
[2017-10-24] MEDS ORDERED: Nitroglycerin 0.4 MG TAB (25 Tab Bottle) PO PRN (15:18)
[2017-10-24] MEDS ORDERED: Guaifenesin DM 100-10/5 ML UDCUP PO PRN (15:18)
[2017-10-24] MEDS ORDERED: Ondansetron HCl/PF 4 MG/2 ML Vial IVP PRN (15:18)
[2017-10-24] MEDS ORDERED: Acetaminophen 325 MG TAB PO PRN (15:18)
[2017-10-24 16:50] LABS: Troponin I 0.017 ng/mL (< 0.028)
[2017-10-24 16:55] VITALS: BMI 36.7
[2017-10-24] MEDS: Ferrous Sulfate 325 MG TAB PO SCH (17:35)
[2017-10-24] MEDS: Sodium Chloride 0.9% 1,000 ML IV SCH (17:35)
[2017-10-24] MEDS: Famotidine 20 MG TAB PO SCH (20:10)
[2017-10-24] MEDS: hydrALAZINE 25 MG TAB PO SCH (20:13)
[2017-10-24] MEDS ORDERED: Atorvastatin Calcium 40 MG TAB PO SCH (21:00)
[2017-10-24] MEDS ORDERED: HYDRALAZINE HCL 150 MG PO SCH (21:00)
--- NOTE | 2017-10-24 21:04 | HP ---
REASON FOR ADMISSION: Chest pain, shortness of breath. HISTORY OF PRESENT ILLNESS: The patient gives history of working in his yard and developed sudden onset of shortness of breath. He tried to sit and lay down for nearly 30 minutes. When he got up, the patient started to have chest pressure on the left side. This lasted for a minute or less. He started to feel a bit drowsy and had multiple such episodes come on. No complaints of cough or expectoration. No history of fever. No complaints of palpitation, PND or orthopnea. The patient follows up with Dr. Weaver and his last follow up was 3 months back and the next appointment is in January. He also mentions that he has been getting radiation therapy for his prostate cancer and finished a cycle 2 weeks back and his chemotherapy is yet to start. PAST MEDICAL AND SURGICAL HISTORY: History of prostate cancer and just finished a cycle radiation therapy, chronic atrial fibrillation, hypertension, dyslipidemia, coronary artery disease, GERD, and cholecystectomy. CURRENT MEDICATIONS: Hydralazine 150 mg twice daily, amiodarone 200 mg p.o. daily, Xarelto 20 mg daily, CoQ10 100 mg daily, aspirin 81 mg daily, atorvastatin 80 mg p.o. at bedtime, lisinopril 40 mg p.o. daily, chlorthalidone to 12.5 mg p.o. daily, Norvasc 5 mg p.o. q.a.m., clonidine p.r.n., ferrous sulfate 325 mg p.o. daily, Loratadine 10 mg p.o. q.a.m. ALLERGIES: No known drug allergies. PERSONAL HISTORY: Does not abuse alcohol or drugs. No history of smoking. Lives with his . FAMILY HISTORY: Mother is living and is 94 years old. She is apparently healthy as far as he knows. Father of massive AR at the age of 55 years. REVIEW OF SYSTEMS: The following complete review of systems was negative, unless otherwise mentioned in the HPI or below: Constitutional: Weight loss or gain, ability to conduct usual activities. Skin: Rash, itching. Eyes: Double vision, pain. ENT/Mouth: Nose bleeding, neck stiffness, pain, tenderness. Cardiovascular: Palpitations, dyspnea on exertion, orthopnea. Respiratory: Shortness of breath, wheezing, cough, hemoptysis, fever or night sweats. Gastrointestinal: Poor appetite, abdominal pain, heartburn, nausea, vomiting, constipation, or diarrhea. Genitourinary: Urgency, frequency, dysuria, nocturia. Musculoskeletal: Pain, swelling. Neurologic/Psychiatric: Anxiety, depression. Allergy/Immunologic: Skin rash, bleeding tendency. PHYSICAL EXAMINATION: GENERAL: The patient is a 62-year-old male who is currently not in any distress with no chest pain. VITAL SIGNS: Blood pressure 136/74, pulse 56 per minute, respiratory rate 16 per minute, temperature 97.7 degrees Fahrenheit, saturating 95% on room air. NECK: Supple, no elevated JVD. HEENT: Extraocular muscles intact. Pupils reacting to light. Oral cavity, mucous membranes are moist. No exudates or congestion. CARDIOVASCULAR: S1, S2 heard. Regular rhythm. RESPIRATORY: Air entry 1+ bilaterally. No rales or rhonchi. ABDOMEN: Soft, bowel sounds heard. No tenderness, rigidity or guarding. EXTREMITIES: No peripheral edema or calf tenderness. VASCULAR SYSTEM: Peripheral pulses 1+ bilateral. No ischemic ulcerations or gangrene. CENTRAL NERVOUS SYSTEM: No gross focal deficits noted. The patient is alert, awake, and oriented well. PSYCHIATRIC: The patient's mood is euthymic. No hallucinations or delusions. LABORATORY AND X-RAY FINDINGS: EKG done shows sinus bradycardia at 54 beats per minute. There is poor R-wave progression. CT angio chest done shows no evidence of pulmonary embolus. There is no obvious infiltrate seen on the CT scan. Potassium is 3.1. Serum bicarbonate is 26, BUN 26, creatinine 0.8, AST 49, ALT 69, total bilirubin 0.6. Cardiac enzymes x1 is negative. BNP is 25, albumin is 3.8. White count of 4.6, H&H 12 and 37, platelet count 176 with 77% neutrophils. CLINICAL IMPRESSION AND PLAN: The patient will be under observation on telemetry for chest pain with known history of coronary artery disease and will follow ACS evidence based protocol. We will obtain two more sets of cardiac enzymes and schedule him for a nuclear stress test. We will continue all his home medications including hydralazine, amiodarone, atorvastatin, lisinopril, Norvasc, ferrous sulfate as before. Xarelto will be held for now for possible intervention if stress test is positive. We will continue to closely monitor him on telemetry. Addendum: He apparently had a stress test 4 months back in 's office , will cancel stress test here and keep him npo after midnight and cardiology consultation. ALEXIS
[2017-10-25 05:10] LABS: Anion Gap 7 mmol/L (10-20); BUN (Urea Nitrogen) 21 mg/dL (8.4-25.7); Band 3 % (5-11); Calc. Creatinine Clearance 137 mL/min (70-130); Calcium 8.4 mg/dL (7.8-10.44); Carbon Dioxide 29 mmol/L (23-31); Chloride 105 mmol/L (98-107); Cholesterol 120 mg/dl (< 200 Desired); Eosinophils 7 % (0-10); Estimated GFR-MDRD Greater than 90; Glucose 107 mg/dL (80-115); HDL Cholesterol 40 mg/dL (>60 Neg Risk); Hemoglobin 11.9 g/dL (14.0-18.0); LDL Cholesterol, Calculated 66 mg/dL; Lymphocytes 19 % (21-51); MDiff Complete? YES; Mean Corpuscular Hemoglobin 32.5 pg (27.0-31.0); Mean Corpuscular Volume 95.4 fl (80.0-94.0); Mean Platelet Volume 6.4 fL (7.4-10.4); Monocytes 8 % (0-10); Neutrophil 63 % (42-75); PLT Morphology Comment Appears Adequate; Platelet Count 165 thou/uL (130-400); Potassium 3.2 mmol/L (3.5-5.1); RBC Distribution Width 12.9 % (11.5-14.5); Red Blood Cell (RBC) Count 3.68 mill/uL (4.70-6.10); Sodium 138 mmol/L (136-145); Triglycerides 69 mg/dL (Less than 150); White Blood Cell (WBC) Count 4.2 thou/uL (4.8-10.8)
[2017-10-25] MEDS: Sodium Chloride 0.9% 1,000 ML IV SCH (07:09)
[2017-10-25] MEDS: Ferrous Sulfate 325 MG TAB PO SCH (08:16)
[2017-10-25] MEDS: hydrALAZINE 25 MG TAB PO SCH (08:16)
[2017-10-25] MEDS: Famotidine 20 MG TAB PO SCH (08:16)
[2017-10-25] MEDS ORDERED: Amiodarone 200 MG TAB PO SCH (09:00)
[2017-10-25] MEDS ORDERED: Aspirin 325 MG TAB PO SCH (09:00)
[2017-10-25] MEDS ORDERED: Lisinopril 20 MG TAB PO SCH (09:00)
[2017-10-25] MEDS ORDERED: Enoxaparin Sodium 40 MG/0.4 ML SYRINGE SC SCH (09:00)
[2017-10-25] MEDS ORDERED: Non-Formulary Item 1 EACH (Lisinopril [Zestril] 40 MG) PO SCH (09:00)
[2017-10-25] MEDS ORDERED: Potassium Chloride 20 MEQ TAB PO SCH (09:30)
--- NOTE | 2017-10-25 13:19 | DIS ---
DATE OF ADMISSION: 10/24/2017 DATE OF DISCHARGE: 10/25/2017 PRIMARY CARE PHYSICIAN: Igor Castillo M.D. DISCHARGE DISPOSITION: Home. PRIMARY DISCHARGE DIAGNOSES: 1. Chest pain, ruled out acute coronary syndrome. 2. Hypokalemia. 3. Transaminitis. SECONDARY DISCHARGE DIAGNOSES: Obstructive sleep apnea, obesity with BMI 36, hypertension, dyslipide mathew, chronic anticoagulation, coronary artery disease, chronic atrial fibrillation. PRIMARY PROCEDURE/OPERATION: None. RADIOLOGICAL INVESTIGATION: Chest x-ray normal. CT angio negative for PE. SIGNIFICANT LABORATORY DATA: WBC 4.2, hemoglobin 11.9, platelet 165. Sodium 138, potassium 3.2, BUN 21, creatinine 0.81. Cardiac enzymes negative x3. BNP 25.7, LDL 66, AST 49, ALT 69. DISCHARGE MEDICATIONS: The patient will continue all his previous medications. Amiodarone 200 mg da prasanth and 100 mg at bedtime, aspirin 81 mg p.o. daily, Lipitor 80 mg p.o. at bedtime, calcium carbonate 1200 mg p.o. daily, chlorthalidone 12.5 mg p.o. daily, vitamin D3 1000 units p.o. daily, clonidine 0 .1 mg p.o. 6 hourly p.r.n., coenzyme Q10 100 mg p.o. b.i.d., ferrous sulfate 325 mg p.o. daily, hydra lazine 150 mg p.o. b.i.d., lisinopril 40 mg p.o. daily, Claritin 10 mg p.o. daily, Xarelto 20 mg p.o. at bedtime, Coenzyme Q10 one capsule p.o. daily. CONTRAINDICATIONS: None. CODE STATUS: FULL CODE. INPATIENT CONSULTANTS: Cardiology consulted and opinion is pending. DISCHARGE PLAN: Post hospital, the patient will follow up with Cardiology and primary care physician . HOSPITAL COURSE: A 62-year-old male with the above-mentioned medical problems who was admitted by Dr Miguel Adams. Please see his H&P for further detail. The patient was having chest pain. In the em ergency room, chest x-ray normal. CT angio was negative for PE. Routine blood tests showed mild hyp okalemia and transaminitis. His subsequent cardiac enzymes are negative. His BNP is normal. His LD L is also normal limits. Telemetry remained unremarkable. This patient had a stress test done at Dr Miguel Weaver's office about 4 months ago and that is why we did not perform any stress test during this admission, but we consulted Cardiology. Cardiology has not seen by the time of dictation. Based on cardiology decision, the patient will get either a cardiac catheterization today or outpatient cardi ac catheterization. If Cardiology cleared him for discharge and we will consider discharging him maya e later on today. I have seen personally this patient bedside and examined and plan of care discussed with the family pineda miranda. We will not make any change significantly in his home medication. PHYSICAL EXAMINATION: VITAL SIGNS: Today, temperature 97.3, pulse 52, respiratory rate 16, saturation 94% on room air, blo od pressure 132/77, weight 232 pounds. GENERAL: The patient is currently alert, awake, no acute distress. HEAD: Normocephalic, atraumatic. EYES: Pupils round, reactive to light. Extraocular muscle intact. ENT: Oropharynx within normal limits. NECK: Supple. No JVD, no thyromegaly, no carotid bruit. LUNGS: Clear to auscultation without any rhonchi or rales. CARDIAC: S1, S2 regular without any murmur. ABDOMEN: Soft and benign. EXTREMITIES: No edema. NEUROLOGIC: Nonfocal examination.
--- NOTE | 2017-10-25 13:52 | PDOC.PN ---
- Subjective Encounter Start Date: 10/25/17 Encounter Start Time: 07:15 -: old records requested/rev Patient seen and examined for chest pain. No new complaints. No overnight events - Objective MAR Reviewed: Yes Vital Signs & Weight: Vital Signs (12 hours) Temp Pulse Resp BP Pulse Ox 10/25/17 11:20 97.3 F L 52 L 16 132/77 94 L 10/25/17 07:19 97.6 F 45 L 16 134/76 97 10/25/17 04:21 98.3 F 48 L 14 136/77 94 L Weight Weight 232 lb I&O: 10/24/17 10/25/17 10/26/17 06:59 06:59 06:59 Intake Total 1579 1000 Output Total 650 Balance 929 1000 Result Diagrams: 10/25/17 04:26 10/25/17 04:26 EKG Reviewed by me: Yes (nsr) Phys Exam - Physical Examination Constitutional: NAD HEENT: PERRLA, moist MMs, sclera anicteric Neck: no JVD, supple Respiratory: no wheezing, no rales, no rhonchi Cardiovascular: RRR, no significant murmur, no rub Gastrointestinal: soft, non-tender, no distention, positive bowel sounds Musculoskeletal: no edema, pulses present Neurological: non-focal, normal sensation, moves all 4 limbs Lymphatic: no nodes Psychiatric: normal affect, A&O x 3 Skin: no rash, normal turgor Dx/Plan (1) Chest pain Code(s): R07.9 - CHEST PAIN, UNSPECIFIED Status: Acute (2) Hypokalemia Code(s): E87.6 - HYPOKALEMIA Status: Acute (3) Transaminitis Code(s): R74.0 - NONSPEC ELEV OF LEVELS OF TRANSAMNS & LACTIC ACID DEHYDRGNSE Status: Acute (4) Afib Code(s): I48.91 - UNSPECIFIED ATRIAL FIBRILLATION Status: Chronic (5) CAD (coronary artery disease) Code(s): I25.10 - ATHSCL HEART DISEASE OF [place] CORONARY ARTERY W/O ANG PCTRS Status: Chronic Qualifiers: (6) Chronic anticoagulation Code(s): Z79.01 - INTERMEDIATE (CURRENT) USE OF ANTICOAGULANTS Status: Chronic (7) Dyslipidemia Code(s): E78.5 - HYPERLIPIDEMIA, UNSPECIFIED Status: Chronic (8) Hypertension Code(s): I10 - ESSENTIAL (PRIMARY) HYPERTENSION Status: Chronic Qualifiers: (9) BECKY (obstructive sleep apnea) Code(s): G47.33 - OBSTRUCTIVE SLEEP APNEA (ADULT) (PEDIATRIC) Status: Chronic (10) Obesity (BMI 30-39.9) Code(s): E66.9 - OBESITY, UNSPECIFIED Status: Chronic - Plan cont current plan of care, plan discussed w/ family * cardiology will decide if cardiac cath needed or not * discharge based on cardiology recommendation * see my discharge summery * medication reviewed as below * symptomatic treatment. Review of Systems - Review of Systems Eyes: negative: Pain, Vision Change, Conjunctivae Inflammation, Eyelid Inflammation, Redness, Other ENT: negative: Ear Pain, Ear Discharge, Nose Pain, Nose Discharge, Nose Congestion, Mouth Pain, Mouth Swelling, Throat Pain, Throat Swelling, Other Respiratory: negative: Cough, Dry, Shortness of Breath, Hemoptysis, SOB with Excertion, Pleuritic Pain, Sputum, Wheezing Cardiovascular: negative: chest pain, palpitations, orthopnea, paroxysmal nocturnal dyspnea, edema, light headedness, other Gastrointestinal: negative: Nausea, Vomiting, Abdominal Pain, Diarrhea, Constipation, Melena, Hematochezia, Other Genitourinary: negative: Dysuria, Frequency, Incontinence, Hematuria, Retention , Other Musculoskeletal: negative: Neck Pain, Shoulder Pain, Arm Pain, Back Pain, Hand Pain, Leg Pain, Foot Pain, Other Skin: negative: Rash, Lesions, Brian, Bruising, Other - Medications/Allergies Allergies/Adverse Reactions: Allergies Allergy/AdvReac Type Severity Reaction Status Date / Time No Known Allergies Allergy Verified 04/19/17 10:46 Medications: Current Medications Acetaminophen (Tylenol) 650 mg PO Q4H PRN PRN Reason: Headache/Fever or Pain Amiodarone HCl (Cordarone) 200 mg PO DAILY [facility] Last Admin: 10/25/17 08:16 Dose: 200 mg Aspirin (Aspirin) 325 mg PO DAILY [facility] Last Admin: 10/25/17 08:16 Dose: 325 mg Atorvastatin Calcium (Lipitor) 80 mg PO HS [facility] Last Admin: 10/24/17 20:08 Dose: 80 mg Calcium Carbonate (Caltrate) 1,200 mg PO DAILY [facility] Chlorthalidone (Hygroton) 12.5 mg PO DAILY [facility] Enoxaparin Sodium (Lovenox) 40 mg SC 0900 [facility] Last Admin: 10/25/17 08:16 Dose: Not Given Famotidine (Pepcid) 20 mg PO BID [facility] Last Admin: 10/25/17 08:16 Dose: 20 mg Ferrous Sulfate (Feosol) 325 mg PO BID[facility] Last Admin: 10/25/17 08:16 Dose: 325 mg Ferrous Sulfate (Feosol) 325 mg PO DAILY [facility] Guaifenesin/Dextromethorphan (Robitussin Dm) 15 ml PO Q4H PRN PRN Reason: Cough Hydralazine HCl (Apresoline) 150 mg PO BID [facility] Last Admin: 10/25/17 08:16 Dose: 150 mg Lisinopril (Zestril) 40 mg PO DAILY [facility] Last Admin: 10/25/17 08:15 Dose: 40 mg Nitroglycerin (Nitrostat) 0.4 mg PO Q5MIN PRN PRN Reason: Chest Pain Ondansetron HCl (Zofran) 4 mg IVP Q6H PRN PRN Reason: Nausea/Vomiting Senna (Senokot) 2 tab PO HSPRN PRN PRN Reason: Constipation Sodium Chloride (Flush - Normal Saline) 10 ml IVF Q12HR [facility] Last Admin: 10/25/17 08:17 Dose: 10 ml Sodium Chloride (Flush - Normal Saline) 10 ml IVF PRN PRN PRN Reason: Saline Flush
[2017-10-25 15:29] VITALS: BP 142/78; TEMP 97.5
--- NOTE | 2017-10-25 22:00 | CON ---
DATE OF CONSULTATION: 10/25/2017 HISTORY: Jono Terry is a pleasant 62-year-old male first evaluated in 03/2002 for an episode of chest pressure. This would be associated with shortness of breath, nausea, diaphoresis a nd would come on with exertion. He underwent treadmill testing, exercised for 9 minutes and he had n o ST segment changes. EKG was negative for ischemia. Echo revealed ejection fraction of 55%-60%. T he study was technically difficult. There was no evidence of stress-induced ischemia. In 11/2005, oziel goel was again referred after discovering that he was in atrial fibrillation. He began to notice that w hen he mowed his grass, he would take twice as long and would be extremely tired and short of breath. He denied any chest discomfort. He gave a history that he had been fatigued for 6 months; however, when he was seen in 11/2005, he denied any palpitations, PND or leg edema, but would become dyspneic after walking 300 feet. Blood pressure was 170/110. Diovan dose was gradually increased. He did u ndergo adenosine Cardiolite testing, which revealed a fixed inferior wall defect with some evidence o f reversible ischemia. He had problems with gingivitis and his teeth bleeding when he was placed on Coumadin and he stopped taking it. He was instructed to see his dentist and then resume the Coumadin. He was placed on Cadu et 5/40 for continued blood pressure control. He then had a syncopal episode when he was out working in the heat and the amlodipine portion was discontinued. He continued to intermittently have elevat ed blood pressures with diastolics above 110. Multiple discussions were held with patient and his wi fe in regard to continuing to take Coumadin. In 01/2006, he was admitted for loading with amiodarone 1600 mg per day for 3 days. He then underwent electrical cardioversion after sedation by Anesthesia and with 200 joules returned to sinus rhythm. He was observed for another day and then discharged. He was placed on Toprol 100 while in the hospital, then this was reduced to 50 mg and ultimately dis continued due to bradycardia. He was placed on Lotrel 03/26. His energy level improved after stoppi ng the Toprol. He again underwent adenosine Cardiolite testing, which revealed inferoseptal ischemia and it was jose juan mmended that he undergo cardiac catheterization, which was performed in 07/2006. This revealed minim al coronary artery disease with 50% mid LAD, 30% proximal RCA lesion. He continued to be followed in the office for his hyperlipidemia and mild coronary artery disease. In 10/2012, he was admitted wit h lightheadedness, dizziness, diaphoresis and chest pressure, lasted 3 hours. He underwent Cardiolit e testing, which revealed mild reversibility in the apex. He then underwent cardiac catheterization. This revealed normal left ventricular function with ejection fraction of 50%-55%. There was a 50% mid LAD and 40% distal LAD. A flow wire was used to measure and there was normal fractional flow res erve in the mid LAD of 0.92. The ramus had a 30% lesion. The proximal right coronary artery had a 3 0% lesion. It was felt that his chest discomfort was not cardiac in nature. In early 2014, he was f ound again to be in atrial fibrillation and complained of increased fatigue and shortness of breath. He was placed on amiodarone 200 mg b.i.d. instead of his usual 200 daily for one month. He also had resumption of anticoagulation with Xarelto. He then underwent HUMBERTO followed by cardioversion in 09/06 with return to sinus rhythm. He has continued to maintain sinus rhythm since that time. He does , however, have sick sinus syndrome and at times will be bradycardic. He has been noticing that when he gets up in the morning, sometimes he is lightheaded. He went out a t approximately 08:30 yesterday to do some work outside and began to feel weak, came in to lay down a nd felt his heart thumping, but no continuous chest discomfort. This lasted approximately 30 minutes and he came to the emergency room. 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 Cardiac enzymes are unr emarkable. PAST MEDICAL HISTORY: Hypertension, diabetes, hyperlipidemia, paroxysmal atrial fibrillation with ca rdioversion x2 and sleep apnea. OPERATIONS: Left tympanic membrane surgery. MEDICATIONS: Amiodarone 200 mg q.a.m. and 100 mg at bedtime, aspirin 81 daily, Xarelto 20 mg at bedt ronda, atorvastatin 80 at bedtime, calcium 1200 mg daily, chlorthalidone 12.5 mg daily, vitamin D3 of 1 000 units daily, clonidine 0.1 mg q.6 hours p.r.n., ferrous sulfate 325 daily, hydralazine 150 mg b.i .d., lisinopril 40 mg daily, loratadine 10 mg daily, CoQ10. ALLERGIES: None. SOCIAL HISTORY: He does not smoke or drink. 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 FAMILY HISTORY: Father started having myocardial infarctions at age 47 and at 57. REVIEW OF SYSTEMS: A 10-point review of systems is otherwise unremarkable. PHYSICAL EXAMINATION: VITAL SIGNS: Blood pressure 142/78, pulse of 51. HEENT: PERRL. NECK: Supple. CHEST: Clear. CARDIAC: S1, S2 normal without any S3, S4 or murmurs. Carotid upstrokes normal without bruits. ABDOMEN: Normal bowel sounds without tenderness, organomegaly or masses. EXTREMITIES: Revealed no clubbing, cyanosis or edema. NEUROLOGIC: Grossly intact. SKIN: Warm and dry. LABORATORY DATA: EKG reveals sinus bradycardia with rate of 54 per minute, nonspecific ST segment ch anges. Cardiac enzymes are totally normal. Hemoglobin 11.9, hematocrit 35.1, white count 4200, plat elets 165,000. Sodium 138, potassium 3.2, chloride 105, carbon dioxide 29, BUN 21, creatinine 0.81. Cholesterol 120, triglycerides 69, HDL 40, LDL 66. IMPRESSION: 1. Feeling of a pounding heartbeat at home. He did not check his pulse nor did he check the blood p ressure nor what his heart rate was. I suspect this may have been due to bradycardia. He also has b een having some lightheaded episodes at home. In the hospital, there has been no correlation with an y symptoms with bradycardia. 2. Hypokalemia secondary to the chlorthalidone. 3. Mild coronary artery disease on last catheterization in 2012 with normal fractional flow reserve of 50% mid LAD lesion. 4. Paroxysmal atrial fibrillation status post 2 cardioversions with bradycardia and some degree of s ick sinus syndrome. 5. Hypertension. 6. Diabetes. 7. Hyperlipidemia, under good control. 8. Positive family history. 9. History of gastrointestinal bleed. 10. Prostate cancer, currently undergoing radiation therapy. 11. Obstructive sleep apnea. PLAN: Mr. Terry will be sent home with a 30-day monitor to try to correlate some of his symptoms wi th bradycardia. I imagine that sometime in the near future, he is going to require a pacemaker place ment. If definitive diagnosis cannot be made with 1-month monitor, consideration may need to be give n to implantation of a loop recorder.
[2017-10-26] MEDS ORDERED: Ferrous Sulfate 325 MG TAB PO SCH (09:00)
[2017-10-26] MEDS ORDERED: Chlorthalidone 25 MG TAB PO SCH (09:00)
[2017-10-26] MEDS ORDERED: Calcium Carbonate 600 MG TAB PO SCH (09:00)
== END 2017-10-25 17:21 | disposition home or self-care (01) ==
LOC: ERS 10:58 → 2SW 16:38
PROVIDERS: ADMIT Internal Medicine; ATTEND Internal Medicine
DX: R07.9 Chest pain, unspecified (principal); R74.0 Nonspecific elevation of levels of transaminase and lactic acid dehydrogenase [LDH]; E87.6 Hypokalemia; G47.33 Obstructive sleep apnea (adult) (pediatric); I10 Essential (primary) hypertension; E78.5 Hyperlipidemia, unspecified; I25.10 Atherosclerotic heart disease of native coronary artery without angina pectoris; I48.2 Chronic atrial fibrillation; E11.9 Type 2 diabetes mellitus without complications; E66.9 Obesity, unspecified; C61 Malignant neoplasm of prostate; Z68.36 Body mass index [BMI] 36.0-36.9, adult; Z79.01 Long term (current) use of anticoagulants; Z79.82 Long term (current) use of aspirin; Z79.899 Other long term (current) drug therapy
CPT/HCPCS: 36415; 71045; 71275; 80048; 80053; 80061; 82553; 83880; 84484; 85025; 93005; 94760; 96360; 96361; A4216; G0378; J1650

== ENCOUNTER 2018-05-03 10:38 | Outpatient (CLI) | payer MEDICARE, OTHER ==
[2018-05-03] MEDS ORDERED: ISOVUE-370 76%-LOCM 1 ML ONE (12:01)
[2018-05-03 16:21] LABS: Estimated GFR-MDRD - POC Greater than 90
--- NOTE | 2018-05-03 16:50 | CT ---
CT OF THE ABDOMEN AND PELVIS WITH AND WITHOUT IV CONTRAST: 05/03/18 INDICATION: History of gross hematuria. CONTRAST: 70 mL of Isovue 370 was administered. COMPARISON: None. FINDINGS: No renal or ureteral calculus is evident. No hydronephrosis is demonstrated. There are small hypodens ities involving both kidneys, too small to characterize but statistically likely reflective of cysts. There are peripelvic cysts seen bilaterally. No gross urothelial lesion is identified. There is wall thickening involving the bladder with perivesicular fat stranding. There are fat containing inguinal hernias. There is scattered diverticula involving the colon. The pancreas and adrenal glands are unr emarkable appearing. The gallbladder is surgically absent. The liver and spleen appear within normal limits. There is mild right basilar atelectasis. No definite acute osseous abnormality is evident. IMPRESSION: 1. Wall thickening involving the bladder with perivesicular fat stranding may reflect a cystitis or may reflect sequela of possible radiation therapy and reflect a radiation induced cystitis. There is some inflammatory change seen surrounding the rectum which also can be related to radiation induc ed proctitis. No drainable fluid collection is evident. 2. Small hypodensities within both kidneys, too small to fully characterize, but statistically l ikely reflective of cysts. There are bilateral peripelvic cysts. 3. Other chronic findings as above. POS: [facility]
== END 2018-05-03 10:39 | disposition home or self-care (01) ==
LOC: BICCT 10:38
PROVIDERS: ATTEND Urology
DX: R31.0 Gross hematuria (principal); N32.89 Other specified disorders of bladder; N28.89 Other specified disorders of kidney and ureter; N28.1 Cyst of kidney, acquired; K57.30 Diverticulosis of large intestine without perforation or abscess without bleeding; J98.11 Atelectasis; Z90.49 Acquired absence of other specified parts of digestive tract; I48.91 Unspecified atrial fibrillation
CPT/HCPCS: 36415; 74178; 80048

== ENCOUNTER 2018-09-13 11:48 | Emergency (ER) | payer MEDICARE, OTHER ==
--- NOTE | 2018-09-13 12:25 | RAD ---
PA AND LATERAL CHEST: Indication: History of shortness of breath. Comparison: 10-24-17 FINDINGS: There is elevation of the right hemidiaphragm. Heart size is mildly enlarged but stable. Pulmonary va sculature is within normal limits. No pleural effusion is evident. Cholecystectomy clips are seen wit hin the right upper quadrant. There is multilevel spondylosis of the thoracic spine. Mild wedging of the T12 vertebral level is stable to comparison dated 10-24-17. IMPRESSION: No acute cardiopulmonary abnormality. Stable elevation right hemidiaphragm. POS: [facility]
[2018-09-13 13:12] LABS: #Eosinphils 0.1 thou/uL (0.0-0.7); #Lymphocytes 0.5 thou/uL (1.20-3.40); #Monocytes 0.6 thou/uL (0.11-0.59); #Neutrophils 3.4 thou/uL (1.40-6.50); %Basophils 0.8 % (0.0-1.0); %Eosinophils 1.9 % (0.0-10.0); %Lymphocytes 11.5 % (21.0-51.0); %Monocytes 13.2 % (0.0-10.0); %Neutrophils 72.6 % (42.0-75.0); Hemoglobin 11.7 g/dL (14.0-18.0); Mean Corpuscular Hemoglobin 28.3 pg (27.0-31.0); Mean Corpuscular Volume 88.4 fL (78.0-98.0); Mean Platelet Volume 7.1 fL (7.4-10.4); Platelet Count 271 thou/uL (130-400); RBC Distribution Width 14.7 % (11.5-14.5); Red Blood Cell (RBC) Count 4.15 mill/uL (4.70-6.10); White Blood Cell (WBC) Count 4.6 thou/uL (4.8-10.8)
[2018-09-13 13:26] LABS: ALT (SGPT) 63 U/L (8-55); AST (SGOT) 37 U/L (5-34); Albumin 4.1 g/dL (3.4-4.8); Alkaline Phosphatase 172 U/L (40-150); Anion Gap 13 mmol/L (10-20); BUN (Urea Nitrogen) 17 mg/dL (8.4-25.7); Bilirubin, Total 0.4 mg/dL (0.2-1.2); Calc. Creatinine Clearance 0 mL/min (70-130); Calcium 8.9 mg/dL (7.8-10.44); Carbon Dioxide 27 mmol/L (23-31); Chloride 105 mmol/L (98-107); Estimated GFR-MDRD Greater than 90; Globulin 2.4 g/dL (2.4-3.5); Glucose 99 mg/dL (80-115); Potassium 3.9 mmol/L (3.5-5.1); Protein, Total 6.5 g/dL (5.8-8.1); Sodium 141 mmol/L (136-145)
[2018-09-13 14:31] LABS: Lipase 16 U/L (8-78)
[2018-09-13 14:32] LABS: CK (CPK) 46 U/L (30-200)
--- NOTE | 2018-09-13 15:15 | CT ---
CT BRAIN NONCONTRAST: HISTORY: 63-year-old male with dizziness and vertigo. FINDINGS: There is no midline shift or any other mass effect. There is no evidence of acute intracranial hemor rhage, large cortical infarct, obstructive hydrocephalus, or extraaxial fluid collection. The calvar ium is intact. IMPRESSION: No acute intracranial findings. jn [] POS: [facility]
--- NOTE | 2018-09-17 14:18 | EKG ---
Test Reason : Blood Pressure : / mmHG Vent. Rate : 058 BPM Atrial Rate : 058 BPM P-R Int : 204 ms QRS Dur : 094 ms QT Int : 486 ms P-R-T Axes : 047 -31 006 degrees QTc Int : 477 ms Sinus bradycardia Left axis deviation Nonspecific ST abnormality Abnormal ECG No tomásnge from 10/25/2017 Confirmed by MAKENZIE OTT DO ([id number]), material expeditor HENOK NICHOLS ([id number]) on 09/17/2018 2:18:35 PM Referred By: Confirmed By:MAKENZIE OTT DO
== END 2018-09-13 16:14 | disposition home or self-care (01) ==
LOC: ERS 11:48
DX: R06.00 Dyspnea, unspecified (principal); I11.0 Hypertensive heart disease with heart failure; I50.9 Heart failure, unspecified; I48.91 Unspecified atrial fibrillation; E78.5 Hyperlipidemia, unspecified; E66.9 Obesity, unspecified
CPT/HCPCS: 36415; 70450; 71046; 80053; 82550; 83690; 83880; 84484; 85025; 93005

== ENCOUNTER 2018-12-13 09:11 | Outpatient (CLI) | payer MEDICARE, OTHER ==
[2018-12-13 11:42] LABS: Hemoglobin 11.6 g/dL (14.0-18.0); Mean Corpuscular HGB CONC 32.6 g/dL (32.0-36.0); Mean Corpuscular Hemoglobin 28.9 pg (27.0-31.0); Mean Corpuscular Volume 88.7 fL (78.0-98.0); Mean Platelet Volume 7.3 fL (7.4-10.4); Platelet Count 224 thou/uL (130-400); RBC Distribution Width 16.2 % (11.5-14.5); White Blood Cell (WBC) Count 5.7 thou/uL (4.8-10.8)
[2018-12-13 11:49] LABS: INR-International Normal Ratio 2.5; PTT 49.9 SEC (22.9-36.1); Prothrombin Time 26.8 SEC (12.0-14.7)
[2018-12-13 11:52] LABS: Bilirubin Negative (Negative); Blood, Urine Large (Negative); Glucose, Urine (Dipstick) Negative (Negative); Leukocyte Negative (Negative); Nitrite Negative (Negative); Protein, Urine (Dipstick) 30 mg/dL (Neg-Trace); Urobilinogen 0.2 mg/dL (Less than 2)
[2018-12-13 11:59] LABS: Clarity Clear (Clear)
[2018-12-13 12:03] LABS: Bacteria/HPF 1+ HPF (None Seen); Squamous Epithelial 0-3 HPF (0-3); WBC/HPF 0-3 HPF (0-3)
[2018-12-13 12:11] LABS: Anion Gap 12 mmol/L (10-20); BUN (Urea Nitrogen) 17 mg/dL (8.4-25.7); Calc. Creatinine Clearance 0 mL/min (70-130); Calcium 9.1 mg/dL (7.8-10.44); Carbon Dioxide 25 mmol/L (23-31); Chloride 105 mmol/L (98-107); Estimated GFR-MDRD 90; Glucose 95 mg/dL (80-115); Potassium 3.4 mmol/L (3.5-5.1); Sodium 139 mmol/L (136-145)
--- NOTE | 2018-12-14 17:25 | EKG ---
Test Reason : Blood Pressure : / mmHG Vent. Rate : 059 BPM Atrial Rate : 083 BPM P-R Int : 184 ms QRS Dur : 098 ms QT Int : 496 ms P-R-T Axes : 068 -09 014 degrees QTc Int : 491 ms Sinus rhythm with Premature atrial complexes Cannot rule out Anterior infarct , age undetermined Abnormal ECG Confirmed by JASON BERNABE ([id number]) on 12/14/2018 5:25:19 PM Referred By: TONNY Confirmed By:JASON BERNABE
== END 2018-12-13 09:12 | disposition home or self-care (01) ==
LOC: LABBT 09:11
PROVIDERS: ATTEND Urology
DX: Z01.818 Encounter for other preprocedural examination (principal); C61 Malignant neoplasm of prostate
CPT/HCPCS: 80048; 81001; 85027; 85610; 85730; 87086; 93005; 93010

== ENCOUNTER 2018-12-22 11:13 | Observation (INO) | payer MEDICARE, OTHER ==
[2018-12-13 10:04] VITALS: BMI 37.5
--- NOTE | 2018-12-22 12:41 | RAD ---
KUB: 12/22/2018 HISTORY: Preoperative patient Findings the bowel gas pattern appears nonobstructed. There is lower lumbar spine facet hypertrophy, most prominent at the lumbosacral junction. Cholecystectomy clips noted in the right upper quadrant. IMPRESSION: No acute findings.
[2018-12-22] MEDS ORDERED: Levofloxacin 500 mg/D5W 100 ml Premix Bag ONE (12:51)
[2018-12-22] MEDS ORDERED: Ondansetron PF 4 MG/2 ML Vial ONE (13:59)
[2018-12-22] MEDS ORDERED: ePHEDrine 50 MG/ML VIAL ONE (13:59)
[2018-12-22] MEDS ORDERED: PHENYLEPHRINE-NS 100 MCG/ML 10 ML SYRINGE ONE (13:59)
[2018-12-22] MEDS ORDERED: PROPOFOL 200 MG/20 ML VIAL ONE (13:59)
[2018-12-22] MEDS ORDERED: Ketorolac Tromethamine 30 MG/ML VIAL ONE (13:59)
[2018-12-22] MEDS ORDERED: Dexamethasone 20 MG/5 ML VIAL ONE (13:59)
[2018-12-22] MEDS ORDERED: Lidocaine 1% PF 5 ML VIAL ONE (13:59)
[2018-12-22] MEDS ORDERED: Fentanyl 100 MCG/2 ML VIAL ONE (14:03)
[2018-12-22] MEDS ORDERED: HYDROmorphone 0.5 MG/0.5 ML SYRINGE ONE (14:03)
[2018-12-22] MEDS ORDERED: Promethazine HCl 25 MG/ML VIAL IM PRN (15:29)
[2018-12-22] MEDS ORDERED: Ondansetron HCl/PF 4 MG/2 ML Vial IVP PRN (15:29)
[2018-12-22] MEDS ORDERED: Promethazine HCl 25 MG/ML VIAL SLOW IVP PRN (15:29)
[2018-12-22] MEDS ORDERED: HYDROmorphone 2 MG/ML VIAL SLOW IVP PRN (15:29)
[2018-12-22] MEDS ORDERED: PACU-Morphine 4MG/ML VIAL SLOW IVP PRN (15:29)
[2018-12-22] MEDS ORDERED: Morphine 4 MG/ML VIAL SLOW IVP PRN (15:36)
[2018-12-22] MEDS ORDERED: Phenazopyridine HCl 97.5 MG TABLET PO PRN (15:36)
[2018-12-22] MEDS ORDERED: Ondansetron PF 4 MG/2 ML Vial IVP PRN (15:36)
[2018-12-22] MEDS ORDERED: Acetaminophen 500 MG TAB PO PRN (15:36)
[2018-12-22] MEDS ORDERED: Bisacodyl 10 MG SUPP PR PRN (15:36)
[2018-12-22] MEDS ORDERED: diphenhydrAMINE 25 MG CAP PO PRN (15:36)
[2018-12-22] MEDS ORDERED: Oxybutynin 5 MG TAB PO PRN (15:36)
[2018-12-22] MEDS ORDERED: Mag-Al 1200 mg/1200 mg/30 ML UDCUP PO PRN (15:36)
[2018-12-22] MEDS ORDERED: Furosemide 20 MG TAB PO PRN (15:38)
[2018-12-22] MEDS ORDERED: Potassium Chloride 10 MEQ TAB PO PRN (15:38)
[2018-12-22] MEDS ORDERED: traMADol HCl 50 MG TAB PO PRN (15:39)
--- NOTE | 2018-12-22 17:27 | OP ---
DATE OF PROCEDURE: 12/22/2018 SERVICE: Urology. PREOPERATIVE DIAGNOSES: Gross hematuria with bladder lesion and prostatic regrowth. POSTOPERATIVE DIAGNOSES: Gross hematuria with bladder lesion and prostatic regrowth. PROCEDURES PERFORMED: Repeat transurethral resection of prostate and bladder biopsy with fulguration. INDICATION FOR PROCEDURE: Mr. Terry is a 63-year-old male with history of prostate cancer, who had previously been diagnosed after TURP. He ended up undergoing radiation and chemotherapy. His PSA has been stable since then, but he had developed gross hematuria. He was found to have a nodular friable lesion on the prostate secondary to regrowth and some radiation damage that was causing intermittent recurrent bleeding that was refractory to standard treatment. We elected to go back in and resect this area along with the prostate to decrease bleeding and there was also an unusual lesion within the bladder, which could not certainly be attributed to radiation cystitis, so we elected to go ahead and do a biopsy of this lesion. Risks and benefits of the procedure were discussed and he has agreed to proceed forward. DESCRIPTION OF PROCEDURE: After identification of armband and verification of consent, the patient was brought back to the operating room, where he underwent anesthesia with an LMA. He was placed in dorsal lithotomy position, prepped and draped in usual sterile fashion. After appropriate time-out, a lubricated 21-Martiniquais cystoscope was inserted through the urethra to the bladder lesion. Using cold cup biopsy forceps, the area was biopsied twice, which removed the majority of the lesion. This was sent off for routine pathologic evaluation. The cystoscope was then removed and a 26-Martiniquais resectoscope sheath with visual obturator was passed per urethra into the bladder. The visual obturator was switched out for a prostate looped bipolar resectoscope, which was then used to cauterize the biopsy site thoroughly. The remainder of the lesion was also fulgurated for complete destruction of that lesion. The ureters were identified in an orthotopic location. The prostate was then resected from the bladder neck to the verumontanum circumferentially. I had to remove all regrowth of prostate tissue, specifically in the area that was extremely friable, which was also removed. Upon completion, the prostate was wide open. All regrowth and nodular tissue had been resected. There was minimal bleeding. Meticulous hemostasis was performed and once dried, the prostate chips were evacuated using [employer] evacuator. There was no additional bleeding noted at the end of the case. Both ureters were in their orthotopic location. The bladder biopsy lesion on the left lateral wall also looked good without any bleeding. The resectoscope was then removed and a 22-Martiniquais three-way Hernandez catheter was inserted with ease into the bladder. A 30 mL of sterile water was placed into the balloon. CBI initiated. The patient then awakened, taken out of lithotomy, and taken to PACU for recovery in stable condition. COMPLICATIONS: None. ESTIMATED BLOOD LOSS: Minimal. RETAINED TUBES AND DRAINS: A 22-Martiniquais three-way Hernandez catheter on CBI. SPECIMENS: Bladder biopsy and prostate chips. DISPOSITION: The patient will be kept in the hospital overnight. We will plan a void trial in the morning and discharge with followup on an outpatient basis. Job ID: [id number]
[2018-12-22] MEDS: Docusate 100 MG CAP PO SCH (20:22)
[2018-12-22] MEDS: hydrALAZINE 25 MG TAB PO SCH (20:23)
[2018-12-22] MEDS ORDERED: Atorvastatin Calcium 40 MG TAB PO SCH (21:00)
[2018-12-22] MEDS ORDERED: Amiodarone 200 MG TAB PO SCH (21:00)
[2018-12-23 05:28] LABS: #Lymphocytes 0.4 thou/uL (1.20-3.40); #Monocytes 0.6 thou/uL (0.11-0.59); #Neutrophils 4.5 thou/uL (1.40-6.50); %Basophils 0.2 % (0.0-1.0); %Lymphocytes 7.8 % (21.0-51.0); %Monocytes 10.7 % (0.0-10.0); %Neutrophils 81.3 % (42.0-75.0); Hemoglobin 8.8 g/dL (14.0-18.0); Mean Corpuscular HGB CONC 32.2 g/dL (32.0-36.0); Mean Corpuscular Hemoglobin 28.6 pg (27.0-31.0); Mean Corpuscular Volume 88.9 fL (78.0-98.0); Platelet Count 176 thou/uL (130-400); RBC Distribution Width 14.8 % (11.5-14.5); Red Blood Cell (RBC) Count 3.07 mill/uL (4.70-6.10); White Blood Cell (WBC) Count 5.5 thou/uL (4.8-10.8)
[2018-12-23 06:03] LABS: Anion Gap 12 mmol/L (10-20); BUN (Urea Nitrogen) 19 mg/dL (8.4-25.7); Calc. Creatinine Clearance 149 mL/min (70-130); Calcium 8.4 mg/dL (7.8-10.44); Carbon Dioxide 23 mmol/L (23-31); Chloride 105 mmol/L (98-107); Estimated GFR-MDRD Greater than 90; Glucose 128 mg/dL (80-115); Potassium 3.5 mmol/L (3.5-5.1); Sodium 136 mmol/L (136-145)
[2018-12-23] MEDS: hydrALAZINE 25 MG TAB PO SCH (08:41)
[2018-12-23] MEDS: Docusate 100 MG CAP PO SCH (08:42)
[2018-12-23] MEDS ORDERED: Amiodarone 200 MG TAB PO SCH (09:00)
[2018-12-23] MEDS ORDERED: Ferrous Sulfate 325 MG TAB PO SCH (09:00)
[2018-12-23] MEDS ORDERED: Loratadine 10 MG TAB PO SCH (09:00)
[2018-12-23] MEDS ORDERED: Lisinopril 20 MG TAB PO SCH (09:00)
[2018-12-23] MEDS ORDERED: Amlodipine 5 MG TAB PO SCH (09:00)
[2018-12-23] MEDS ORDERED: cefTRIAXone\\ROCEPHIN 1 GM in Sodium Chloride 0.9% 100 ML IVPB SCH (09:45)
[2018-12-23 11:55] VITALS: BP 131/78; TEMP 97.5
--- NOTE | 2018-12-23 15:24 | PRG ---
DATE OF SERVICE: 12/23/2018 SUBJECTIVE: The patient states he is doing fine. No complaints. No bladder spasms or bladder pain. OBJECTIVE: VITAL SIGNS: Stable. GENERAL: No apparent distress, communicating, and alert. CARDIOVASCULAR: Regular rate and rhythm. ABDOMEN: Soft, nontender, and nondistended. : Hernandez catheter in place with CBI of completely clear urine. EXTREMITIES: SCDs in place. No edema. LABORATORY DATA: On laboratory evaluation, the full set of labs are in the [facility] system, which I have reviewed. All labs are stable. ASSESSMENT AND PLAN: A 63-year-old male with prostate cancer with prior history of TURP, status post repeat resection of prostate today for bleeding and as well as a bladder biopsy of an unusual lesion. The patient is doing very well. We will plan a void trial so long as he can void and his urine is relatively clear. He can be discharged home and I will handle his followup on an outpatient basis. I have gone over all of his discharge instructions and medications. Job ID: [id number]
== END 2018-12-23 11:58 | disposition home or self-care (01) ==
LOC: SDC 11:13 → SURG A 15:36
PROVIDERS: ADMIT Urology; ATTEND Urology
PROC: 0TBB8ZX Excision of Bladder, Via Natural or Artificial Opening Endoscopic, Diagnostic (ICD-10-PCS; principal; 2018-12-22)
DX: C61 Malignant neoplasm of prostate (principal); N42.0 Calculus of prostate; N41.1 Chronic prostatitis; R31.0 Gross hematuria; G47.33 Obstructive sleep apnea (adult) (pediatric); I10 Essential (primary) hypertension; E78.00 Pure hypercholesterolemia, unspecified; I25.10 Atherosclerotic heart disease of native coronary artery without angina pectoris; E66.9 Obesity, unspecified; Z68.37 Body mass index [BMI] 37.0-37.9, adult; Z79.01 Long term (current) use of anticoagulants; Z79.899 Other long term (current) drug therapy
CPT/HCPCS: 52601; 74018; 80048; 85025; 88305; G0378; 36415; J0696; J1100; J1170; J1885; J1956; J2001; J2405; J2704; J3010; J3490

== ENCOUNTER 2018-12-29 07:58 | Observation (INO) | payer MEDICARE, OTHER ==
[2018-12-29 08:22] LABS: #Eosinphils 0.2 thou/uL (0.0-0.7); #Lymphocytes 0.8 thou/uL (1.20-3.40); #Monocytes 0.7 thou/uL (0.11-0.59); #Neutrophils 3.1 thou/uL (1.40-6.50); %Basophils 0.1 % (0.0-1.0); %Eosinophils 4.8 % (0.0-10.0); %Lymphocytes 16.6 % (21.0-51.0); %Monocytes 13.8 % (0.0-10.0); %Neutrophils 64.7 % (42.0-75.0); Hemoglobin 11.1 g/dL (14.0-18.0); Mean Corpuscular HGB CONC 33.1 g/dL (32.0-36.0); Mean Corpuscular Hemoglobin 28.9 pg (27.0-31.0); Mean Corpuscular Volume 87.4 fL (78.0-98.0); Mean Platelet Volume 7.1 fL (7.4-10.4); Platelet Count 259 thou/uL (130-400); RBC Distribution Width 14.7 % (11.5-14.5); Red Blood Cell (RBC) Count 3.83 mill/uL (4.70-6.10); White Blood Cell (WBC) Count 4.8 thou/uL (4.8-10.8)
--- NOTE | 2018-12-29 08:38 | RAD ---
EXAM: Single view of the chest HISTORY: Shortness of breath COMPARISON: 10/24/2017 FINDINGS: Single view of the chest shows a normal sized cardiomediastinal silhouette. There is no jhoana dence of consolidation, mass, or pleural effusion. The bones are unremarkable. IMPRESSION: No evidence of acute cardiopulmonary disease
[2018-12-29 08:45] LABS: ALT (SGPT) 54 U/L (8-55); AST (SGOT) 47 U/L (5-34); Albumin 3.9 g/dL (3.4-4.8); Alkaline Phosphatase 181 U/L (40-150); Anion Gap 13 mmol/L (10-20); BUN (Urea Nitrogen) 17 mg/dL (8.4-25.7); Bilirubin, Total 0.5 mg/dL (0.2-1.2); Calc. Creatinine Clearance 0 mL/min (70-130); Calcium 9.2 mg/dL (7.8-10.44); Carbon Dioxide 25 mmol/L (23-31); Chloride 106 mmol/L (98-107); Estimated GFR-MDRD Greater than 90; Globulin 3.2 g/dL (2.4-3.5); Glucose 104 mg/dL (80-115); Potassium 4.1 mmol/L (3.5-5.1); Protein, Total 7.1 g/dL (5.8-8.1); Sodium 140 mmol/L (136-145)
--- NOTE | 2018-12-29 09:43 | CT ---
CT BRAIN WITHOUT CONTRAST: Date: 12/29/18 HISTORY: Dizziness. Headache. COMPARISON: 09/13/18. FINDINGS: No evidence of infarct, hemorrhage, midline shift, or abnormal extra-axial fluid collections are seen . The ventricular size is normal and the basilar cisterns are patent. The bony calvarium is intact. T he visualized paranasal sinuses are well aerated. IMPRESSION: No CT evidence of acute intracranial process. POS: [facility]
[2018-12-29 14:47] LABS: Troponin I Less than 0.010 ng/mL (< 0.028)
[2018-12-29] MEDS ORDERED: Ondansetron ODT 4 MG TAB PO PRN (15:12)
[2018-12-29] MEDS ORDERED: HYDROcodone/Acetaminophen 5/325 mg Tablet PO PRN (15:12)
[2018-12-29] MEDS ORDERED: Zolpidem Tartrate 5 MG TAB PO PRN (15:12)
[2018-12-29] MEDS ORDERED: Acetaminophen 325 MG TAB PO PRN (15:12)
[2018-12-29] MEDS ORDERED: Meclizine HCl 25 MG TAB PO PRN (15:19)
[2018-12-29] MEDS ORDERED: Furosemide 20 MG TAB PO PRN (15:20)
--- NOTE | 2018-12-29 15:54 | HP ---
PRIMARY CARE PROVIDER: Dr. Castillo. REASON FOR ADMISSION: Referred to the [facility] by [facility] for dizziness. HISTORY: In the morning about 11, the patient started having dizziness with motion in his head. It is basically a whirling sensation. He bent down to tie his shoes, he states he blacked out for a second, he did not lose consciousness, just vision went out. He had no focal weakness. No speech defect or other visual defect. He continues to have dizziness with motion of his head. No headache. He has had no focal weakness. PAST MEDICAL HISTORY: 1. He had an SD 15 years ago. 2. He has had an atrial fibrillation. 3. Hypertension. 4. Elevated cholesterol. 5. He has had cancer of the prostate, treated with radiotherapy and chemotherapy, finished last summer. 6. He has a history of chronic anticoagulation. PAST SURGICAL HISTORY: Includes a transurethral resection of the prostate 1 week ago. ALLERGIES: NO KNOWN DRUG ALLERGIES. FAMILY HISTORY: Mother is alive. Father of a massive SD at age 55. There is no prostate cancer in the family. SOCIAL HISTORY: . No alcohol, drugs, or tobacco. Lives with his , she is at bedside. Full code status. Discussed with both. REVIEW OF SYSTEMS: GENERAL: He states he had chills yesterday. No sweats. EYES: See present illness. No double vision, blurred vision, etc., except for that brief episode. EARS, NOSE, AND THROAT: No ear pain or drainage. No nasal bleeding or trouble swallowing. CARDIAC: No chest pain, orthopnea, or paroxysmal nocturnal dyspnea. RESPIRATION: He has chronic shortness of breath with exertion. No asthma, wheezing, or cough. GASTROINTESTINAL: No nausea, vomiting, or abdominal pain. He has had blood on the tissue when he cleaned himself, some small amount of blood in the stool. He has a history of radiation proctitis, has had 2 colonoscopies in the last year. GENITOURINARY: He denies any dysuria or hematuria. MUSCULOSKELETAL: No pain or swelling in his arms or legs. PSYCHIATRIC: No anxiety or depression. SKIN: No bruising, bleeding, or rash. NEUROLOGIC: No strokes, seizures, or focal weakness. HEMATOLOGIC/LYMPHATIC: No tender or swollen lumps under his skin, specifically under his arms, in his neck, or his groin. PHYSICAL EXAMINATION: GENERAL: He is an alert, appropriate gentleman. As I mentioned before, at bedside. VITAL SIGNS: Blood pressure 153/85, pulse 51 to 56, respirations 16 to 17, temperature 97.7. HEAD, EYES, EARS, NOSE, AND THROAT: Pupils equal, round, and reactive to light. Extraocular movements are intact. Sclerae are white. Tympanic membranes are clear. Nose is clear. Throat is clear. Mucous membranes are wet. NECK: No jugular venous distention, adenopathy, or thyromegaly. CHEST: Clear to auscultation and percussion. HEART: Regular rate and rhythm. First and second second heart sounds are clear. There are no appreciated murmurs or gallops. ABDOMEN: Soft. Bowel sounds are normal. No hepatosplenomegaly. No mass. No rebound. EXTREMITIES: No cyanosis, clubbing, or edema. SKIN: Warm and dry without bruises or rash. HEMATOLOGIC/LYMPHATIC: No tender or swollen lymph nodes in the axilla, inguinal, or cervical area. PULSES: Carotid, radial, femoral, and dorsalis pedis pulses are intact. NEUROLOGIC: Cranial nerves 2 through 12 are intact. Deep tendon reflexes symmetric. Moves all extremities. DIAGNOSTIC STUDIES: EKG currently unavailable, we will find in report. Brain CT was done, which reveals no acute intracranial abnormality, reviewed by me. Chest x-ray, reviewed by me; no cardiomegaly. Elevated right hemidiaphragm with plate atelectasis on the right, the elevated right hemidiaphragm is old; however, the plate atelectasis is new. LABORATORY DATA: Comprehensive metabolic profile; AST 47, alkaline phosphatase 181, otherwise normal. Cardiac enzymes normal x2. CBC; white count 4.8, hemoglobin 11.1, normocytic normochromic indices, and platelet count 259,000. ADMITTING DIAGNOSES: 1. Vertigo. 2. Rectal bleeding with history of radiation proctitis and recent colonoscopy. 3. Atrial fibrillation, on therapy. 4. Coronary artery disease. 5. Chronic anticoagulation. 6. Hypertension. 7. Dyslipidemia. 8. Cancer of the prostate, post radiation and chemotherapy and recent transurethral resection of the prostate. PLAN: 1. Observation admission. 2. Monitored bed. 3. Serial H and H. 4. Repeat basic metabolic profile in the morning. 5. Urinalysis and urine culture. 6. Antivert 25 mg p.o. t.i.d. The patient will require re-evaluation in the morning. If his hemoglobin is stable, I see no further reason for evaluating his colon. Need for antibiotics will be decided based on urinalysis and urine culture. If the patient is stable on Antivert tomorrow without any vertigo, he can be discharged to be followed up with primary care provider most likely. Job ID: [id number]
[2018-12-29 15:55] LABS: Bacteria/HPF None Seen HPF (None Seen); Bilirubin Negative (Negative); Blood, Urine 1+ (Negative); Clarity Clear (Clear); Glucose, Urine (Dipstick) Normal (Negative); Leukocyte 25 Leu/uL (Negative); Mucous/LPF 1+ LPF (<2+); Nitrite Negative (Negative); Protein, Urine (Dipstick) 30 mg/dL (Neg-Trace); RBC/HPF Greater than 50 HPF (0-3); Squamous Epithelial 0-3 HPF (0-3); Urobilinogen Normal mg/dL (Less than 2)
[2018-12-29] MEDS: Sodium Chloride 0.9% 1,000 ML IV SCH (17:25)
[2018-12-29 17:29] VITALS: BMI 37.1
[2018-12-29 17:46] LABS: #Eosinphils 0.2 thou/uL (0.0-0.7); #Lymphocytes 0.9 thou/uL (1.20-3.40); #Monocytes 0.6 thou/uL (0.11-0.59); #Neutrophils 2.8 thou/uL (1.40-6.50); %Basophils 0.7 % (0.0-1.0); %Eosinophils 4.4 % (0.0-10.0); %Lymphocytes 18.8 % (21.0-51.0); %Monocytes 13.8 % (0.0-10.0); %Neutrophils 62.2 % (42.0-75.0); Hemoglobin 10.5 g/dL (14.0-18.0); Mean Corpuscular HGB CONC 33.5 g/dL (32.0-36.0); Mean Corpuscular Hemoglobin 29.4 pg (27.0-31.0); Mean Corpuscular Volume 87.6 fL (78.0-98.0); Mean Platelet Volume 6.7 fL (7.4-10.4); Platelet Count 248 thou/uL (130-400); RBC Distribution Width 14.5 % (11.5-14.5); Red Blood Cell (RBC) Count 3.58 mill/uL (4.70-6.10); White Blood Cell (WBC) Count 4.5 thou/uL (4.8-10.8)
[2018-12-29 18:12] LABS: Troponin I Less than 0.010 ng/mL (< 0.028)
--- NOTE | 2018-12-29 19:07 | PDOC.EVN ---
Event Note - Event Note Event Note: POST TURP- UA pos RBC, few WBC. neg esterase/nitrite. doubt UTI. C&S pending
[2018-12-29] MEDS: hydrALAZINE 25 MG TAB PO SCH (20:45)
[2018-12-29 20:47] LABS: Troponin I Less than 0.010 ng/mL (< 0.028)
[2018-12-29] MEDS ORDERED: Amiodarone 200 MG TAB PO SCH (21:00)
[2018-12-29] MEDS ORDERED: Rivaroxaban 10 MG TAB PO SCH (21:00)
[2018-12-29] MEDS ORDERED: Atorvastatin Calcium 40 MG TAB PO SCH (21:00)
[2018-12-29 23:31] LABS: Band 1 % (5-11); Eosinophils 3 % (0-10); Hemoglobin 9.2 g/dL (14.0-18.0); Lymphocytes 16 % (21-51); MDiff Complete? YES; Mean Corpuscular Hemoglobin 29.8 pg (27.0-31.0); Mean Corpuscular Volume 87.6 fL (78.0-98.0); Monocytes 13 % (0-10); Neutrophil 67 % (42-75); Platelet Count 204 thou/uL (130-400); Platelet Morphology Comment Appears Adequate; RBC Distribution Width 14.2 % (11.5-14.5); White Blood Cell (WBC) Count 5.2 thou/uL (4.8-10.8)
[2018-12-30 05:19] LABS: #Eosinphils 0.3 thou/uL (0.0-0.7); #Lymphocytes 0.7 thou/uL (1.20-3.40); #Monocytes 0.7 thou/uL (0.11-0.59); #Neutrophils 2.8 thou/uL (1.40-6.50); %Basophils 0.3 % (0.0-1.0); %Eosinophils 6.2 % (0.0-10.0); %Monocytes 14.5 % (0.0-10.0); %Neutrophils 63.9 % (42.0-75.0); Hemoglobin 8.8 g/dL (14.0-18.0); Mean Corpuscular HGB CONC 33.5 g/dL (32.0-36.0); Mean Corpuscular Hemoglobin 29.4 pg (27.0-31.0); Mean Corpuscular Volume 87.8 fL (78.0-98.0); Mean Platelet Volume 6.8 fL (7.4-10.4); Platelet Count 207 thou/uL (130-400); RBC Distribution Width 14.2 % (11.5-14.5); White Blood Cell (WBC) Count 4.5 thou/uL (4.8-10.8)
[2018-12-30 05:41] LABS: Anion Gap 9 mmol/L (10-20); BUN (Urea Nitrogen) 23 mg/dL (8.4-25.7); Calc. Creatinine Clearance 136 mL/min (70-130); Calcium 8.3 mg/dL (7.8-10.44); Carbon Dioxide 25 mmol/L (23-31); Chloride 108 mmol/L (98-107); Estimated GFR-MDRD Greater than 90; Glucose 111 mg/dL (80-115); Potassium 3.7 mmol/L (3.5-5.1); Sodium 138 mmol/L (136-145)
[2018-12-30] MEDS: Sodium Chloride 0.9% 1,000 ML IV SCH (06:04)
[2018-12-30] MEDS: hydrALAZINE 25 MG TAB PO SCH (08:12)
[2018-12-30 08:15] VITALS: BP 122/75; TEMP 97.7
[2018-12-30] MEDS ORDERED: Oxybutynin 5 MG TAB PO PRN (08:43)
[2018-12-30] MEDS ORDERED: traMADol HCl 50 MG TAB PO PRN (08:43)
[2018-12-30] MEDS ORDERED: Ferrous Sulfate 325 MG TAB PO SCH (09:00)
[2018-12-30] MEDS ORDERED: Amiodarone 200 MG TAB PO SCH (09:00)
[2018-12-30] MEDS ORDERED: Ubidecarenone 50 MG CAP PO SCH (09:00)
[2018-12-30] MEDS ORDERED: Docusate 100 MG CAP PO SCH (09:00)
[2018-12-30] MEDS ORDERED: Loratadine 10 MG TAB PO SCH (09:00)
[2018-12-30] MEDS ORDERED: Lisinopril 20 MG TAB PO SCH (09:00)
[2018-12-30] MEDS ORDERED: Amlodipine 5 MG TAB PO SCH (09:00)
[2018-12-30] MEDS ORDERED: Aspirin 81 mg Enteric Coated Tablet PO SCH (09:00)
--- NOTE | 2018-12-30 14:43 | DIS ---
DATE OF ADMISSION: 12/29/2018 DATE OF DISCHARGE: 12/30/2018 PRIMARY CARE PHYSICIAN: [facility] Call admission. DISCHARGE DISPOSITION: Home. PRIMARY DISCHARGE DIAGNOSIS: Dizziness likely due to dehydration as well as anemia, resolved. SECONDARY DISCHARGE DIAGNOSES: Chronic atrial fibrillation, chronic normocytic normochromic anemia, coronary artery disease, chronic anticoagulation, dyslipidemia, history of prostate cancer, hematuria, hypertension, obesity, obstructive sleep apnea. PRIMARY PROCEDURE/OPERATION: None. RADIOLOGIST INVESTIGATION: CT brain, normal. Chest x-ray, normal. SIGNIFICANT LABORATORY DATA: Hemoglobin 8.8. Creatinine 0.80. Cardiac enzyme negative. Urinalysis showed RBC. Urine culture negative. DISCHARGE MEDICATIONS: 1. Amiodarone 200 mg in the morning and 100 mg at bedtime. 2. Amlodipine 5 mg daily. 3. Aspirin 81 mg daily. 4. Vitamin D3 of 1000 units p.o. at bedtime. 5. Ferrous sulfate 325 mg p.o. daily. 6. Lasix 20 mg as directed. 7. Hydralazine 150 mg p.o. b.i.d. (the patient is advised to hold this medication if blood pressure is less than 140). 8. Lisinopril 40 mg p.o. daily. 9. Claritin 10 mg p.o. daily p.r.n. 10. Potassium chloride 10 mEq p.o. as directed. 11. Xarelto 20 mg p.o. q.h.s. 12. Coenzyme Q10 of 100 mg daily. 13. Lipitor 80 mg p.o. q.h.s. 14. Colace 100 mg b.i.d. 15. Ditropan 5 mg q.8 hourly p.r.n. 16. Azo 195 mg p.o. q.8 hourly p.r.n. 17. Tramadol 50 mg q.4 hourly p.r.n. CONTRAINDICATION: None. CODE STATUS: Full code. INPATIENT BUDGET ACCOUNTANT: None. ALLERGIES: NO KNOWN DRUG ALLERGIES. DISCHARGE PLAN: Posthospital, the patient will follow up with Dr. Calin Sorto in one week. HOSPITAL COURSE: A 63-year-old male with above-mentioned medical problem, who was admitted by Dr. Cornejo. Please see his H and P for further details. The patient was brought to emergency room for dizziness. His dizziness was not related with benign positional vertigo, but his dizziness was related with volume depletion and may be part of anemia. This patient was also taking blood pressure medication, but we checked orthostatic vitals and that were negative. His blood pressure was running relatively lower side while in the hospital. His dehydration was corrected with IV fluid. He did not have any arrhythmia while in the hospital. We advised him to hold blood pressure medication, especially hydralazine if blood pressure is less than 140. He was given instruction to monitor his blood pressure and keep diary of blood pressure and see primary care physician for further adjustment of therapy. He had a dilutional anemia, as well as his anemia is chronic from chronic mild hematuria, and that is why we advised him to follow up with urologist. While in hospital, he did not have any rectal bleeding. We advised him to continue all previous medications. I have seen and examined the patient at bedside today. His vitals are stable without any orthostatic hypotension. His examination is normal. He is able to ambulate by himself, and I spoke with as well. Job ID: [id number]
== END 2018-12-30 10:52 | disposition home or self-care (01) ==
LOC: ERS 07:58 → 2SW 17:05
PROVIDERS: ADMIT Internal Medicine; ATTEND Internal Medicine
DX: E86.0 Dehydration (principal); D64.9 Anemia, unspecified; E78.5 Hyperlipidemia, unspecified; I48.2 Chronic atrial fibrillation; I10 Essential (primary) hypertension; I25.10 Atherosclerotic heart disease of native coronary artery without angina pectoris; G47.33 Obstructive sleep apnea (adult) (pediatric); E66.9 Obesity, unspecified; Z68.37 Body mass index [BMI] 37.0-37.9, adult; Z79.01 Long term (current) use of anticoagulants; Z79.82 Long term (current) use of aspirin; Z79.899 Other long term (current) drug therapy
CPT/HCPCS: 70450; 71045; 80048; 80053; 81001; 83880; 84484 ×2; 85025 ×3; 87086; 93005; 96360; 96361 ×2; 99285; G0378 ×3; 36415

== ENCOUNTER 2019-02-21 12:03 | Outpatient (CLI) | payer MEDICARE, OTHER ==
--- NOTE | 2019-02-21 12:51 | RAD ---
XR Chest Pa Lat @ [facility] HISTORY: Dyspnea COMPARISON: 12/29/2018 FINDINGS: There is continued elevation the right hemidiaphragm. The heart size is normal. The lungs a re well expanded without focal areas of consolidation, pneumothorax or pleural effusions. IMPRESSION: No radiographic evidence of acute cardiopulmonary process.
== END 2019-02-21 12:04 | disposition home or self-care (01) ==
LOC: RAD 12:03
PROVIDERS: ATTEND Internal Medicine Pulmonary Disease
DX: R06.00 Dyspnea, unspecified (principal)
CPT/HCPCS: 71046

== ENCOUNTER 2019-04-12 13:00 | Outpatient (CLI) | payer MEDICARE, OTHER ==
--- NOTE | 2019-04-12 18:05 | HP ---
HISTORY OF PRESENT ILLNESS: Mr. Jono Terry is a very pleasant 64-year-old gentleman, who presents to the [facility] for evaluation for hyperbaric oxygen therapy for treatment of radiation cystitis. The patient's medical history is significant for prostate carcinoma for which the patient received radiation therapy and chemotherapy. The patient underwent TURP in 2016, followed by repeat TURP in December of this year. At the time of surgery in December of this year, the patient underwent resection of an area of radiation damage causing intermittent recurrent bleeding refractory to standard treatment. The patient states that despite resection of the area of radiation damage, he continues to experience intermittent hematuria. The patient is therefore referred for evaluation for a trial of HBOT. PAST MEDICAL HISTORY: 1. Hypertension. 2. Atrial fibrillation. 3. Coronary artery disease. 4. Obstructive sleep apnea. 5. History of benign prostatic hypertrophy. 6. Diverticulosis. 7. Anemia. 8. History of prostate carcinoma, status post radiation therapy and chemotherapy. 9. History of gastroesophageal reflux disease. PAST SURGICAL HISTORY: 1. Left tympanic membrane surgery. 2. Laparoscopic cholecystectomy. 3. Right epididymectomy. 4. TURP in June 2016. 5. Herniorrhaphy x2 on 04/23/2017. 6. Repeat TURP on 12/22/2018. MEDICATIONS: 1. Lisinopril. 2. Hydralazine. 3. Coenzyme Q10. 4. Amiodarone. 5. Aspirin. 6. Amlodipine. 7. Ferrous sulfate. 8. Loratadine. 9. Xarelto. 10. Atorvastatin. 11. Calcium. 12. Vitamin D. 13. Potassium. 14. Lasix. 15. Symbicort. 16. Ezetimibe. ALLERGIES: NO KNOWN DIAGNOSED ALLERGIES. SOCIAL HISTORY: Social history is negative for tobacco or EtOH use. FAMILY HISTORY: Family history is significant for coronary artery disease. The patient states that his father was diagnosed with coronary artery disease. PHYSICAL EXAMINATION: VITAL SIGNS: Temperature 98.3, pulse 65, respirations 20, blood pressure 167/91. GENERAL: A 64-year-old gentleman, sitting on chair in examination room, in no acute distress. HEENT: Normocephalic, atraumatic. NECK: No nuchal rigidity. CHEST: Clear to auscultation. CARDIOVASCULAR: Regular rate and rhythm. ABDOMEN: Soft. EXTREMITIES: No clubbing or cyanosis. NEUROLOGIC: Grossly nonfocal. ASSESSMENT AND PLAN: 1. A 64-year-old gentleman, referred for evaluation for hyperbaric oxygen therapy for radiation cystitis. The patient has experienced intermittent hematuria following radiation therapy for prostate carcinoma as stated above, although the patient underwent surgery in December 2018, which included resection of an area of radiation damage. He nevertheless continues to experience intermittent hematuria. The patient denies any history of congestive heart failure, seizures, crushing chest trauma, pneumothorax, recent retinal surgery, blood disorders including hereditary spherocytosis or the administration of any chemotherapeutic agents contraindicating hyperbaric oxygen therapy. The patient states that he has undergone surgery following chemotherapy without any pulmonary complications. The patient understands the risks and benefits of hyperbaric oxygen therapy and wishes to proceed. The patient will be treated at 2.5 MARGIE with each session lasting approximately 90 minutes. The length of treatment will depend upon the patient's response to hyperbaric oxygen therapy in conjunction with the appearance of the bladder wall on cystoscopic exam. 2. Hypertension. 3. Atrial fibrillation. 4. Coronary artery disease. 5. Obstructive sleep apnea. 6. History of benign prostatic hypertrophy. 7. Diverticulosis. 8. Anemia. 9. History of prostate carcinoma, status post radiation therapy and chemotherapy. 10. Gastroesophageal reflux disease. Job ID: [id number]
== END 2019-04-12 13:01 | disposition home or self-care (01) ==
LOC: WCC 13:00
PROVIDERS: ATTEND Family Medicine
DX: N30.40 Irradiation cystitis without hematuria (principal); I10 Essential (primary) hypertension; I48.91 Unspecified atrial fibrillation; I25.10 Atherosclerotic heart disease of native coronary artery without angina pectoris; G47.33 Obstructive sleep apnea (adult) (pediatric); K57.90 Diverticulosis of intestine, part unspecified, without perforation or abscess without bleeding; D64.9 Anemia, unspecified; K21.9 Gastro-esophageal reflux disease without esophagitis
CPT/HCPCS: 97139; G0463; 99203

== ENCOUNTER 2019-04-13 13:31 | Outpatient (CLI) | payer MEDICARE, OTHER | END 2019-04-13 13:32 | disposition home or self-care (01) | LOC: WCC 13:31 | PROVIDERS: ATTEND Family Medicine | DX: N30.41 Irradiation cystitis with hematuria (principal) | CPT/HCPCS: G0277 ==

== ENCOUNTER 2019-04-17 10:49 | Outpatient (CLI) | payer MEDICARE, OTHER | END 2019-04-17 10:50 | disposition home or self-care (01) | LOC: WCC 10:49 | PROVIDERS: ATTEND Family Medicine | DX: N30.41 Irradiation cystitis with hematuria (principal) | CPT/HCPCS: G0277 ==

== ENCOUNTER 2019-04-18 09:08 | Outpatient (CLI) | payer MEDICARE, OTHER | END 2019-04-18 09:09 | disposition home or self-care (01) | LOC: WCC 09:08 | PROVIDERS: ATTEND Family Medicine | DX: T81.89XD Other complications of procedures, not elsewhere classified, subsequent encounter (principal) | CPT/HCPCS: G0277 ==

== ENCOUNTER 2019-04-19 13:20 | Outpatient (CLI) | payer MEDICARE, OTHER | END 2019-04-19 13:21 | disposition home or self-care (01) | LOC: WCC 13:20 | PROVIDERS: ATTEND Family Medicine | DX: N30.41 Irradiation cystitis with hematuria (principal) | CPT/HCPCS: G0277 ==

== ENCOUNTER 2019-04-20 11:37 | Outpatient (CLI) | payer MEDICARE, OTHER | END 2019-04-20 11:38 | disposition home or self-care (01) | LOC: WCC 11:37 | PROVIDERS: ATTEND Family Medicine | DX: N30.41 Irradiation cystitis with hematuria (principal) | CPT/HCPCS: G0277 ==

== ENCOUNTER 2019-04-24 11:14 | Outpatient (CLI) | payer MEDICARE, OTHER | END 2019-04-24 11:15 | disposition home or self-care (01) | LOC: WCC 11:14 | PROVIDERS: ATTEND Family Medicine | DX: N30.41 Irradiation cystitis with hematuria (principal) | CPT/HCPCS: G0277 ==

== ENCOUNTER 2019-04-25 11:00 | Outpatient (CLI) | payer MEDICARE, OTHER | END 2019-04-25 11:01 | disposition home or self-care (01) | LOC: WCC 11:00 | PROVIDERS: ATTEND Family Medicine | DX: N30.41 Irradiation cystitis with hematuria (principal) | CPT/HCPCS: G0277 ==

== ENCOUNTER 2019-04-26 10:55 | Outpatient (CLI) | payer MEDICARE, OTHER | END 2019-04-26 10:56 | disposition home or self-care (01) | LOC: WCC 10:55 | PROVIDERS: ATTEND Family Medicine | DX: N30.41 Irradiation cystitis with hematuria (principal) | CPT/HCPCS: G0277 ==

== ENCOUNTER 2019-04-27 08:23 | Outpatient (CLI) | payer MEDICARE, OTHER | END 2019-04-27 08:24 | disposition home or self-care (01) | LOC: WCC 08:23 | PROVIDERS: ATTEND Family Medicine | DX: N30.41 Irradiation cystitis with hematuria (principal) | CPT/HCPCS: G0277 ==

== ENCOUNTER 2019-05-08 12:35 | Outpatient (CLI) | payer MEDICARE, OTHER | END 2019-05-08 12:36 | disposition home or self-care (01) | LOC: WCC 12:35 | PROVIDERS: ATTEND Family Medicine | DX: C61 Malignant neoplasm of prostate (principal); N30.41 Irradiation cystitis with hematuria | CPT/HCPCS: G0277 ==

== ENCOUNTER 2019-05-09 08:35 | Outpatient (CLI) | payer MEDICARE, OTHER | END 2019-05-09 08:36 | disposition home or self-care (01) | LOC: WCC 08:35 | PROVIDERS: ATTEND Family Medicine | DX: N30.41 Irradiation cystitis with hematuria (principal) | CPT/HCPCS: G0277 ==

== ENCOUNTER 2019-05-10 08:00 | Outpatient (CLI) | payer MEDICARE, OTHER | END 2019-05-10 08:01 | disposition home or self-care (01) | LOC: WCC 08:00 | PROVIDERS: ATTEND Family Medicine | DX: N30.41 Irradiation cystitis with hematuria (principal) | CPT/HCPCS: G0277 ==

== ENCOUNTER 2019-05-11 09:49 | Outpatient (CLI) | payer MEDICARE, OTHER | END 2019-05-11 09:50 | disposition home or self-care (01) | LOC: WCC 09:49 | PROVIDERS: ATTEND Family Medicine | DX: N30.41 Irradiation cystitis with hematuria (principal) | CPT/HCPCS: G0277 ==

== ENCOUNTER 2019-05-15 08:31 | Outpatient (CLI) | payer MEDICARE, OTHER | END 2019-05-15 08:32 | disposition home or self-care (01) | LOC: WCC 08:31 | PROVIDERS: ATTEND Family Medicine | DX: N30.41 Irradiation cystitis with hematuria (principal) | CPT/HCPCS: 81001; 87086; G0277 ==

== ENCOUNTER 2019-05-17 08:21 | Outpatient (CLI) | payer MEDICARE, OTHER | END 2019-05-17 08:22 | disposition home or self-care (01) | LOC: WCC 08:21 | PROVIDERS: ATTEND Family Medicine | DX: N30.41 Irradiation cystitis with hematuria (principal) | CPT/HCPCS: G0277 ==

== ENCOUNTER 2019-05-18 10:06 | Outpatient (CLI) | payer MEDICARE, OTHER | END 2019-05-18 10:07 | disposition home or self-care (01) | LOC: WCC 10:06 | PROVIDERS: ATTEND Family Medicine | DX: N30.41 Irradiation cystitis with hematuria (principal) | CPT/HCPCS: G0277 ==

== ENCOUNTER 2019-05-22 05:24 | Emergency (ER) | payer MEDICARE, OTHER ==
[2019-05-22 06:02] LABS: Bilirubin Negative (Negative); Blood, Urine Large (Negative); Glucose, Urine (Dipstick) Negative (Negative); Leukocyte Trace (Negative); Nitrite Negative (Negative); Protein, Urine (Dipstick) > or equal to 300 mg/dL (Neg-Trace); Urobilinogen 0.2 mg/dL (Less than 2)
[2019-05-22 06:03] LABS: Clarity Turbid (Clear); RBC/HPF Greater than 50 HPF (0-3)
[2019-05-22 06:06] LABS: Bacteria/HPF None Seen HPF (None Seen); Squamous Epithelial None Seen HPF (0-3); Trichomonas/HPF None Seen HPF (None Seen); Yeast-Budding None Seen HPF (None Seen)
[2019-05-22 06:10] LABS: #Eosinphils 0.1 thou/uL (0.0-0.7); #Lymphocytes 0.7 thou/uL (1.20-3.40); #Monocytes 0.6 thou/uL (0.11-0.59); #Neutrophils 2.5 thou/uL (1.40-6.50); %Eosinophils 2.4 % (0.0-10.0); %Lymphocytes 18.4 % (21.0-51.0); %Monocytes 14.2 % (0.0-10.0); Hemoglobin 9.5 g/dL (14.0-18.0); Mean Corpuscular HGB CONC 33.5 g/dL (32.0-36.0); Mean Corpuscular Volume 89.6 fL (78.0-98.0); Mean Platelet Volume 7.1 fL (7.4-10.4); Platelet Count 226 thou/uL (130-400); RBC Distribution Width 15.1 % (11.5-14.5); Red Blood Cell (RBC) Count 3.18 mill/uL (4.70-6.10); White Blood Cell (WBC) Count 3.8 thou/uL (4.8-10.8)
[2019-05-22 06:15] LABS: INR-International Normal Ratio 2.2; Prothrombin Time 24.6 SEC (12.0-14.7)
[2019-05-22 06:30] LABS: ALT (SGPT) 69 U/L (8-55); AST (SGOT) 54 U/L (5-34); Albumin 3.6 g/dL (3.4-4.8); Alkaline Phosphatase 117 U/L (40-110); Anion Gap 11 mmol/L (10-20); BUN (Urea Nitrogen) 28 mg/dL (8.4-25.7); Bilirubin, Total 0.5 mg/dL (0.2-1.2); Calc. Creatinine Clearance 0 mL/min (70-130); Calcium 8.5 mg/dL (7.8-10.44); Carbon Dioxide 25 mmol/L (23-31); Chloride 107 mmol/L (98-107); Estimated GFR-MDRD Greater than 90; Globulin 2.4 g/dL (2.4-3.5); Glucose 110 mg/dL (80-115); Potassium 3.4 mmol/L (3.5-5.1); Sodium 140 mmol/L (136-145)
== END 2019-05-22 07:21 | disposition home or self-care (01) ==
LOC: ERS 05:24
DX: R31.9 Hematuria, unspecified (principal); I48.91 Unspecified atrial fibrillation; I11.0 Hypertensive heart disease with heart failure; I50.9 Heart failure, unspecified; I25.2 Old myocardial infarction; K21.9 Gastro-esophageal reflux disease without esophagitis; E78.5 Hyperlipidemia, unspecified; Z79.01 Long term (current) use of anticoagulants; Z79.899 Other long term (current) drug therapy; Z79.82 Long term (current) use of aspirin
CPT/HCPCS: 36415; 51702; 80053; 81003; 81015; 85025; 85610; 85730

== ENCOUNTER 2019-05-23 10:59 | Outpatient (CLI) | payer MEDICARE, OTHER | END 2019-05-23 11:00 | disposition home or self-care (01) | LOC: WCC 10:59 | PROVIDERS: ATTEND Family Medicine | DX: N30.41 Irradiation cystitis with hematuria (principal) | CPT/HCPCS: G0277 ==

== ENCOUNTER 2019-05-24 08:22 | Outpatient (CLI) | payer MEDICARE, OTHER | END 2019-05-24 08:23 | disposition home or self-care (01) | LOC: WCC 08:22 | PROVIDERS: ATTEND Family Medicine | DX: N30.41 Irradiation cystitis with hematuria (principal) | CPT/HCPCS: G0277 ==

== ENCOUNTER 2019-05-25 10:41 | Outpatient (CLI) | payer MEDICARE, OTHER | END 2019-05-25 10:42 | disposition home or self-care (01) | LOC: WCC 10:41 | PROVIDERS: ATTEND Family Medicine | DX: N30.41 Irradiation cystitis with hematuria (principal) | CPT/HCPCS: G0277 ==

== ENCOUNTER 2019-08-14 14:38 | Observation (INO) | payer MEDICARE, OTHER ==
--- NOTE | 2019-08-14 15:37 | CT ---
CT BRAIN WITHOUT CONTRAST: HISTORY:Syncope COMPARISON:12/29/2018 FINDINGS: No evidence of acute infarct, hemorrhage, midline shift or abnormal extra-axial fluid collections is seen. The ventricular size is appropriate and the basilar cisterns are patent. The bony calvarium is intact. Cortical atrophy is stable The visualized paranasal sinuses and mastoid air cells are well aerated. IMPRESSION: No CT evidence of acute intracranial process.
[2019-08-14] MEDS ORDERED: Lorazepam 1 MG TAB ONE (15:47)
--- NOTE | 2019-08-14 15:57 | RAD ---
XR Chest 1 View Portable HISTORY: Syncope COMPARISON: 02/21/2019 FINDINGS: There is continued elevation of the right hemidiaphragm. The heart size normal. No lobar co nsolidation, pneumothoraces, riki pulmonary edema or pleural effusions are seen. IMPRESSION: No radiographic evidence of acute cardiopulmonary process.
[2019-08-14 16:02] LABS: #Lymphocytes 0.7 thou/uL (1.20-3.40); #Monocytes 0.9 thou/uL (0.11-0.59); #Neutrophils 10.7 thou/uL (1.40-6.50); %Basophils 0.1 % (0.0-1.0); %Eosinophils 0.1 % (0.0-10.0); %Lymphocytes 5.3 % (21.0-51.0); %Monocytes 7.3 % (0.0-10.0); %Neutrophils 87.2 % (42.0-75.0); Hemoglobin 10.3 g/dL (14.0-18.0); Mean Corpuscular HGB CONC 33.1 g/dL (32.0-36.0); Mean Corpuscular Hemoglobin 29.4 pg (27.0-31.0); Mean Corpuscular Volume 88.6 fL (78.0-98.0); Platelet Count 224 thou/uL (130-400); RBC Distribution Width 13.8 % (11.5-14.5); Red Blood Cell (RBC) Count 3.51 mill/uL (4.70-6.10); White Blood Cell (WBC) Count 12.2 thou/uL (4.8-10.8)
--- NOTE | 2019-08-14 16:13 | CT ---
CT CERVICAL SPINE NONCONTRAST: DATE: HISTORY: 64-year-old male status post acute cervical trauma from fall. FINDINGS: There are no jumped or perched facets. There is no evidence of acute fracture. The vertebral body h eights are maintained. There is no prevertebral soft tissue swelling. IMPRESSION: No evidence of acute fracture or acute traumatic subluxation. jn POS: CET
[2019-08-14 16:25] LABS: ALT (SGPT) 75 U/L (8-55); AST (SGOT) 75 U/L (5-34); Albumin 3.9 g/dL (3.4-4.8); Alkaline Phosphatase 112 U/L (40-110); Anion Gap 13 mmol/L (10-20); BUN (Urea Nitrogen) 29 mg/dL (8.4-25.7); Bilirubin, Total 0.6 mg/dL (0.2-1.2); Calc. Creatinine Clearance 0 mL/min (70-130); Calcium 8.7 mg/dL (7.8-10.44); Carbon Dioxide 24 mmol/L (23-31); Chloride 108 mmol/L (98-107); Estimated GFR-MDRD 71; Globulin 2.6 g/dL (2.4-3.5); Glucose 99 mg/dL (80-115); Potassium 3.6 mmol/L (3.5-5.1); Protein, Total 6.5 g/dL (5.8-8.1); Sodium 141 mmol/L (136-145)
[2019-08-14 20:42] LABS: Troponin I Less than 0.010 ng/mL (< 0.028)
[2019-08-14 22:32] LABS: Troponin I Less than 0.010 ng/mL (< 0.028)
[2019-08-15] MEDS ORDERED: Acetaminophen 500 MG TAB PO PRN (01:18)
[2019-08-15] MEDS ORDERED: traMADol HCl 50 MG TAB PO PRN (01:18)
[2019-08-15] MEDS ORDERED: Acetaminophen 325 MG TAB PO PRN (01:27)
[2019-08-15] MEDS ORDERED: Rivaroxaban 10 MG TAB PO SCH ×2 (01:30→21:00)
[2019-08-15] MEDS ORDERED: Nitroglycerin 0.4 MG TAB (25 Tab Bottle) PO PRN (01:31)
[2019-08-15] MEDS ORDERED: hydrALAZINE 20 MG/ML VIAL SLOW IVP PRN (01:33)
--- NOTE | 2019-08-15 01:34 | HP ---
CHIEF COMPLAINT: Syncopal episode. HISTORY OF PRESENT ILLNESS: Patient is a 64-year-old male with prostate cancer; coronary artery disease; atrial fibrillation, on anticoagulation; and obstructive sleep apnea, on CPAP, presented to the emergency room after a syncopal episode. Patient had a syncopal episode earlier today while he was at his daughter's house. 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 He then went to the bathroom and had a syncopal episode. He is unable to recall the details of the above event. He felt lightheaded, dizzy, and clammy. He also had some generalized shaking. He lost consciousness for a few seconds. There was no significant altered mentation when he regained consciousness. He denies any chest pain, palpitations, lower extremity edema, or shortness of breath. He states that he did not eat or drink much. He is not sure whether he hit his head on the floor. His blood pressure by EMS was 90/59. PAST MEDICAL HISTORY: 1. Atrial fibrillation, on anticoagulation. 2. Coronary artery disease. 3. Hyperlipidemia. 4. History of prostate cancer, followed by Dr. Sorto. 5. Hypertension. 6. History of syncope while on amlodipine. 7. Allergic rhinitis. 8. Diverticulosis. 9. Obstructive sleep apnea, on CPAP. 10. History of epididymitis. 11. Hernia. 12. History of iron-deficiency anemia. 13. Obesity with a BMI of 34.8. PAST SURGICAL HISTORY: 1. Cardiac catheterization. 2. TURP. 3. Prostate biopsy. 4. Right tympanoplasty. 5. Laparoscopic cholecystectomy. 6. Right epididymectomy. 7. Herniorrhaphy. ALLERGIES: NO KNOWN DRUG ALLERGIES. CURRENT HOME MEDICATION: 1. Amiodarone 200 mg in the morning and 100 mg at bedtime. 2. Amlodipine 5 mg daily. 3. Aspirin 81 mg daily. 4. Ferrous sulfate 325 mg daily. 5. Lasix as needed. 6. Hydralazine 150 mg b.i.d. 7. Lisinopril 40 mg daily. 8. Potassium chloride as directed. 9. Xarelto 20 mg at bedtime. 10. Lipitor 80 mg at bedtime. 11. Oxybutynin as needed. 12. Tramadol as needed. 13. Aspirin 81 mg daily. SOCIAL HISTORY: Patient currently lives at home with his family. 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 He denies current use of smoking, alcohol, or drug use. FAMILY HISTORY: Heart disease runs in his family. REVIEW OF SYSTEMS: All other review of systems was reviewed and was found negative. PHYSICAL EXAMINATION: VITAL SIGNS: Vital signs in the emergency room showed temperature 97.6, respirations 22, pulse rate of 72, and blood pressure of 90/59 by EMS. After IV fluids, his blood pressure improved to 110/69 and O2 saturation 99% on room air. GENERAL: A 64-year-old male, in no apparent distress. HEENT: Head, atraumatic and normocephalic. Sclerae anicteric. Moist mucous membranes. No oral lesion. NECK: Supple. No JVD appreciated. No carotid bruit. LUNGS: Clear to auscultation bilaterally. No wheezing, rales, or rhonchi. HEART: S1 and S2 present. Regular rate and rhythm. No rubs or gallops. ABDOMEN: Soft, nontender. Bowel sounds present. EXTREMITIES: No edema or calf tenderness. NEUROLOGY: Grossly nonfocal, moves all 4 extremities. Power was 5/5 in all extremities. PSYCHIATRY: Alert, awake, and oriented x3. SKIN: Warm and dry. LYMPH NODES: No palpable lymph nodes in the neck. PERIPHERAL VASCULAR: Radial pulses palpable bilaterally. MUSCULOSKELETAL: No joint swelling or tenderness. LABORATORY FINDINGS: CBC showed WBC 12.2 with hemoglobin 10.3, hematocrit 31.1 , and platelet 224. Chemistry showed sodium 141, potassium 3.6, chloride 108, bicarb 24, BUN 29, and creatinine 1.05. AST of 75, ALT of 75, and alkaline phosphatase of 112. Troponin was negative. Last blood pressure was 106/57. IMAGING STUDIES: Chest x-ray by my review was negative for infiltrate or edema. CT scan of the brain was negative for acute findings. EKG by my review showed sinus rhythm with nonspecific ST-T wave changes with left axis deviation. IMPRESSION: 1. Syncope suspected due to hypotension, rule out cardiac arrhythmia. 2. Coronary artery disease. 3. Paroxysmal atrial fibrillation, on anticoagulation. 4. Obstructive sleep apnea, on CPAP. 5. Hyperlipidemia. 6. Obesity with a BMI of 34.8. 7. Prostate cancer, followed by Dr. Sorto. 8. Chronic anemia, suspected due to nutritional deficiency. 9. Gastroesophageal reflux disease. PLAN: Telemetry monitoring. Resume aspirin and Xarelto. CT scan of the brain was negative for intracranial bleed. We will hold lisinopril, Lasix, amlodipine, and hydralazine for now. Resume amiodarone. Consult Cardiology, Dr. Weaver. His troponins have been negative. An echocardiogram will be obtained. Resume home CPAP. We will obtain urinalysis. We will obtain orthostatic vitals in a.m. Patient understands the above plan of care. Job ID: [id number] [facility]
[2019-08-15 03:44] VITALS: BMI 34.9
--- NOTE | 2019-08-15 07:43 | CT ---
CT CERVICAL SPINE NONCONTRAST: DATE: 08-14-2019 HISTORY: 64-year-old male status post acute cervical trauma from fall. FINDINGS: There are no jumped or perched facets. There is no evidence of acute fracture. The vertebral body h eights are maintained. There is no prevertebral soft tissue swelling. IMPRESSION: No evidence of acute fracture or acute traumatic subluxation. jn POS: CET
[2019-08-15] MEDS ORDERED: Oxybutynin 5 MG TAB PO PRN (08:42)
[2019-08-15] MEDS ORDERED: Ubidecarenone 50 MG CAP PO SCH (09:00)
[2019-08-15] MEDS: Docusate 100 MG CAP PO SCH ×2 (09:33→21:09)
[2019-08-15] MEDS: Loratadine 10 MG TAB PO SCH (09:33)
[2019-08-15] MEDS: Ezetimibe 10 MG TAB PO SCH (09:34)
[2019-08-15] MEDS: Amiodarone 200 MG TAB PO SCH (09:34)
[2019-08-15] MEDS: Famotidine 20 MG TAB PO SCH ×2 (09:34→21:09)
[2019-08-15] MEDS: Aspirin 81 mg Enteric Coated Tablet PO SCH (09:34)
[2019-08-15 09:51] LABS: Iron 24 ug/dL (65-175); Iron Binding Capacity, Total 294 mcg/dL (261-462)
--- NOTE | 2019-08-15 10:14 | ULT ---
US Carotid Doppler STANDARD History: Near syncope Comparison: Ultrasound 2012 Findings: Real-time grayscale, color, and spectral analysis of the extracranial carotid and vertebral arteries was performed. No elevated peak systolic velocities within the internal carotid arteries. Antegrade flow both verteb ral arteries. Impression: No hemodynamically significant stenosis.
[2019-08-15 10:19] LABS: Bilirubin Negative (Negative); Blood, Urine 2+ (Negative); Clarity Turbid (Clear); Glucose, Urine (Dipstick) Normal (Negative); Leukocyte 75 Leu/uL (Negative); Nitrite Negative (Negative); Protein, Urine (Dipstick) 30 mg/dL (Neg-Trace); RBC/HPF Greater than 50 HPF (0-3); Squamous Epithelial 0-3 HPF (0-3); Urobilinogen Normal mg/dL (Less than 2)
[2019-08-15 10:27] LABS: Bacteria/HPF None Seen HPF (None Seen); Mucous/LPF 1+ LPF (<2+)
[2019-08-15 10:28] LABS: Urine Culture Reflex Yes Yes
[2019-08-15 11:38] LABS: Thyroid Stimulating Hormone 1.3192 uIU/mL (0.35-4.94)
[2019-08-15 16:23] LABS: Mean Corpuscular HGB CONC 32.3 g/dL (32.0-36.0); Mean Corpuscular Hemoglobin 28.6 pg (27.0-31.0); Mean Corpuscular Volume 88.7 fL (78.0-98.0); Mean Platelet Volume 6.7 fL (7.4-10.4); Platelet Count 170 thou/uL (130-400); RBC Distribution Width 13.6 % (11.5-14.5); Red Blood Cell (RBC) Count 3.15 mill/uL (4.70-6.10); White Blood Cell (WBC) Count 4.8 thou/uL (4.8-10.8)
[2019-08-15 16:49] LABS: Band 8 % (5-11); Eosinophils 1 % (0-10); Lymphocytes 15 % (21-51); MDiff Complete? YES; Monocytes 4 % (0-10); Neutrophil 68 % (42-75); Ovalocytes SLIGHT = 2-5 cells (100X) (0-1/hpf); Platelet Morphology Comment Appears Adequate; Polychromasia SLIGHT = 2-3 cells (100X) (0-2/hpf)
--- NOTE | 2019-08-15 17:00 | PDOC.EVN ---
Event Note - Event Note Event Note: 10.5. iron studies low iron. FU Hg 9.0. check FOBT, rpt Hg in AM
[2019-08-15] MEDS ORDERED: Amiodarone 200 MG TAB PO SCH (21:00)
[2019-08-15] MEDS ORDERED: Atorvastatin Calcium 40 MG TAB PO SCH (21:00)
--- NOTE | 2019-08-15 22:53 | PDOC.EVN ---
Event Note - Event Note Event Note: Stopped Amiodarone dose q hs, patient told nurse that he no longer takes his evening dose secondary to bradycardia. It was d/c'd sometime in February of last year.
--- NOTE | 2019-08-15 23:26 | CON ---
DATE OF CONSULTATION: HISTORY OF PRESENT ILLNESS: Jono Terry is a 64-year-old male, who I first evaluated in March 2002 for an episode of chest pressure. This was associated with shortness of breath, nausea and diaphoresis, noted to start with exertion. He underwent treadmill testing and exercised for 9 minutes, had no ST-segment changes. EKG was negative for ischemia. Echo revealed ejection fraction of 55% to 60%. There was no evidence of stress-induced ischemia. In November 2005 , he was again referred after discovering that he was in atrial fibrillation. 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 He would be short of breath with this. He denied any chest discomfort. He gave a history of being fatigued for more than 6 months. Blood pressure was 170/110. He underwent adenosine Cardiolite testing, which revealed a fixed inferior wall defect with some evidence of reversible ischemia. He had problems with gingivitis and his teeth were bleeding when he was placed on Coumadin. He then stopped taking that. He was instructed to see his dentist and then resumed the Coumadin. He was placed on Caduet 5/40 for poorly controlled blood pressure control. He then had a syncopal episode when he was out working in the heat and the amlodipine portion was discontinued. He continued to intermittently have elevated blood pressures with diastolics above 110. In January 2006, he was admitted and loaded with amiodarone 1600 mg per day for 3 days. He then underwent electrocardioversion after sedation by anesthesia. With 200 joules, he returned to sinus rhythm. He was placed on Toprol 100 mg daily while in the hospital that was reduced to 50 mg and ultimately discontinued due to bradycardia. His energy level improved after stopping the Toprol. He then underwent adenosine Cardiolite testing, which revealed inferoseptal ischemia. It was recommended he undergo cardiac catheterization, which was performed in July 2006. He had minimal coronary artery disease with 50% mid LAD, 30% proximal RCA lesion. He continued to be followed in the office for his hyperlipidemia and mild coronary artery disease. In October 2012, he was admitted with lightheadedness, dizziness, diaphoresis, and chest pressure that lasted 3 hours. He underwent Cardiolite testing, which revealed mild reversibility in the apex. He then underwent catheterization. There was normal left ventricular function with ejection fraction of 50% to 55%. There was a 50 % mid LAD, 40% distal LAD. A flow wire was used to measure the 50% mid LAD lesion and there was normal fractional flow reserve of the mid LAD at 0.92. The ramus had a 30% lesion. The proximal right coronary artery had a 30% lesion. It was felt that his chest discomfort was not cardiac in nature. In early 2014, he was again found to be in atrial fibrillation, complaining of increased fatigue and shortness of breath. He was placed on amiodarone 200 mg b.i.d. instead of his usual 200 daily for 1 month. He also had resumed anticoagulation with Xarelto. He underwent HUMBERTO followed by cardioversion in September 2014. He has continued to maintain sinus rhythm since that time. However, he does have sick sinus syndrome and at times bradycardic. He has undergone monitoring as an outpatient in the past, but has never been found to have significant bradycardia to warrant pacemaker placement. Yesterday, he was on the commode and felt extremely weak, dizzy, tried to get up. Apparently, called for his , states she helped him to the floor. However, he does not remember falling to the floor. He denied any shortness of breath or chest discomfort. Since being admitted, he has not had any significant bradycardia, although frequently his resting heart rate will be in the 50s. PAST MEDICAL HISTORY: Hypertension, diabetes, hyperlipidemia, paroxysmal atrial fibrillation with cardioversion x2, and obstructive sleep apnea. PAST SURGICAL HISTORY: Left tympanic membrane surgery, TURP. MEDICATIONS: 1. Amiodarone 200 mg q.a.m. and one half tablet q.p.m. 2. Amlodipine 1 daily. 3. Aspirin 81 daily. 4. Xarelto 20 mg daily. 5. Atorvastatin 80 at bedtime. 6. Diazepam 5 mg p.r.n. 7. Colace 100 mg b.i.d. 8. Zetia 10 mg daily. 9. Ferrous sulfate 325 daily. 10. Hydralazine 100 mg t.i.d. Lisinopril 40 q.a.m. 11. Loratadine 10 mg q.a.m. 12. Meclizine 25 p.r.n. 13. Ditropan 5 mg q.8 hours p.r.n. 14. Ultram 50 q.4 hours p.r.n. 15. CoQ10. ALLERGIES: NONE. SOCIAL HISTORY: He does not smoke or drink. 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 FAMILY HISTORY: Father started having myocardial infarction since the age of 47 and at the age of 57. REVIEW OF SYSTEMS: A 10-point review of systems is otherwise unremarkable. PHYSICAL EXAMINATION: VITAL SIGNS: Blood pressure is 122/81, pulse of 50. HEENT: PERRL. NECK: Supple. CHEST: Clear. CARDIAC: S1 and S2 normal without any S3, S4, murmurs. NECK: Carotid upstroke is normal without bruits. ABDOMEN: Normal bowel sounds without tenderness. EXTREMITIES: Revealed no clubbing, cyanosis, or edema. NEUROLOGIC: Grossly intact. IMAGING: EKG revealed normal sinus rhythm with nonspecific T-wave changes. Hemoglobin 10.3, which dropped to 9.0, white count 4800, platelets 170,000. Sodium 141, potassium 3.6, chloride 108, carbon dioxide 24, BUN 29, creatinine 1.05. Cardiac enzymes were negative x3. TSH is normal. Iron 24, TIBC 294. IMPRESSION: 1. Syncopal episode. He has paroxysmal atrial fibrillation, has undergone cardioversion twice and requires fairly high dose amiodarone to maintain sinus rhythm. He has heart rates in the 50s at times. I imagine this syncopal episode was due to bradycardia, although we have not been able to document significant bradycardia at this time. He may need pacemaker placement. 2. Paroxysmal atrial fibrillation status post cardioversion x2. 3. Mild coronary artery disease. 4. Sick sinus syndrome. 5. Hypercholesterolemia. 6. Hypertension. 7. Positive family history. 8. Obstructive sleep apnea. 9. Gastrointestinal hemorrhage in the past. 10. Prostate cancer. PLAN: Mr. Terry will continue to be monitored. At the present time, he has not shown any significant enough bradycardia or pause to warrant pacemaker placement , although I feel this is probably the ultimate etiology of his syncopal episode. Blood count will be monitored closely. Echocardiogram will be performed to assess left ventricular function. Xarelto has been discontinued, in case he was found to have significant GI bleeding, also to stop in case bradycardia dictates a pacemaker needs to be placed. Job ID: [id number] [facility]
[2019-08-16 05:18] LABS: #Eosinphils 0.2 thou/uL (0.0-0.7); #Lymphocytes 0.7 thou/uL (1.20-3.40); #Monocytes 0.6 thou/uL (0.11-0.59); #Neutrophils 3.6 thou/uL (1.40-6.50); %Basophils 0.5 % (0.0-1.0); %Eosinophils 3.5 % (0.0-10.0); %Monocytes 11.3 % (0.0-10.0); %Neutrophils 70.8 % (42.0-75.0); Mean Corpuscular HGB CONC 32.5 g/dL (32.0-36.0); Mean Corpuscular Volume 89.1 fL (78.0-98.0); Platelet Count 185 thou/uL (130-400); RBC Distribution Width 13.6 % (11.5-14.5); Red Blood Cell (RBC) Count 3.09 mill/uL (4.70-6.10); White Blood Cell (WBC) Count 5.1 thou/uL (4.8-10.8)
[2019-08-16] MEDS: Docusate 100 MG CAP PO SCH (10:03)
[2019-08-16] MEDS: Famotidine 20 MG TAB PO SCH (10:03)
[2019-08-16] MEDS: Ezetimibe 10 MG TAB PO SCH (10:03)
[2019-08-16] MEDS: Amiodarone 200 MG TAB PO SCH (10:04)
[2019-08-16] MEDS: Aspirin 81 mg Enteric Coated Tablet PO SCH (10:04)
[2019-08-16] MEDS: Loratadine 10 MG TAB PO SCH (10:04)
[2019-08-16 12:17] VITALS: BP 139/70; TEMP 98.3
--- NOTE | 2019-08-16 18:58 | DIS ---
DATE OF ADMISSION: 08/14/2019 DATE OF DISCHARGE: 08/16/2019 DISCHARGE DISPOSITION: Home. FOLLOWUP: 1. Follow up with primary care physician, Dr. Castillo in 1 week. 2. Follow up with Cardiology, Dr. Weaver as scheduled. 3. Event monitor has been arranged. DISCHARGE MEDICATIONS: 1. Ciprofloxacin 500 mg twice daily. 2. Xarelto has been discontinued per Cardiology recommendation. BRIEF HOSPITAL COURSE: The patient is a 64-year-old male with prostate cancer, coronary artery disease, paroxysmal atrial fibrillation on anticoagulation, obstructive sleep apnea on CPAP, presented to the hospital with syncope. Please refer to the history and physical for further details. The patient was admitted to the hospital with a diagnosis of syncope, suspected due to bradycardia. He was evaluated by Cardiology. His serial troponins remain negative. An echocardiogram was obtained that showed ejection fraction 50% to 55% with diastolic dysfunction, moderate mitral regurgitation, mild tricuspid regurgitation. His carotid Doppler was negative for hemodynamically significant stenosis. CT brain as well as cervical spine CT was negative. He has been cleared by Cardiology for discharge with the Event Monitor. The patient was found to have anemia with hemoglobin of 9.0. His hemoglobin and hematocrit on admission was 10.3. Event monitor has been arranged. The patient will continue amiodarone. FINAL DIAGNOSES: 1. Syncopal episode, suspected due to bradycardia. 2. Paroxysmal atrial fibrillation. Anticoagulation held this admission due to gross hematuria and anemia. 3. Mild coronary artery disease. 4. Sick sinus syndrome. 5. Hypertension. 6. Hyperlipidemia. 7. Family history of heart disease. 8. Obstructive sleep apnea. 9. History of GI bleeding in the past. 10. Prostate cancer. 11. Diverticulosis. 12. Obesity with a BMI of 34.8. 13. The patient understands the above plan of care. 14. The patient was advised to follow up on the final urine cultures. Job ID: [id number]
== END 2019-08-16 17:10 | disposition home or self-care (01) ==
LOC: ERS 14:38 → 2SW 19:52
PROVIDERS: ADMIT Emergency Medicine; ATTEND Emergency Medicine
DX: R55 Syncope and collapse (principal); I25.10 Atherosclerotic heart disease of native coronary artery without angina pectoris; G47.33 Obstructive sleep apnea (adult) (pediatric); E78.5 Hyperlipidemia, unspecified; I10 Essential (primary) hypertension; E66.9 Obesity, unspecified; D64.9 Anemia, unspecified; K21.9 Gastro-esophageal reflux disease without esophagitis; I48.0 Paroxysmal atrial fibrillation; I49.5 Sick sinus syndrome; K57.30 Diverticulosis of large intestine without perforation or abscess without bleeding; Z68.34 Body mass index [BMI] 34.0-34.9, adult; Z85.46 Personal history of malignant neoplasm of prostate; Z98.890 Other specified postprocedural states; Z90.49 Acquired absence of other specified parts of digestive tract; Z79.82 Long term (current) use of aspirin; Z79.899 Other long term (current) drug therapy; Z79.01 Long term (current) use of anticoagulants; Z99.89 Dependence on other enabling machines and devices; Z87.891 Personal history of nicotine dependence
CPT/HCPCS: 70450; 71045; 72125; 80053; 81001; 82607; 83540; 83550; 84443; 84484 ×2; 85025 ×3; 87077; 87086; 87186; 93005; 93306; 93880; 94760 ×2; 97139 ×2; 99285; G0378 ×4; 36415

== ENCOUNTER 2020-02-07 10:04 | Outpatient (CLI) | payer MEDICARE, OTHER ==
--- NOTE | 2020-02-07 10:41 | ULT ---
LEFT UPPER EXTREMITY VENOUS DOPPLER ULTRASOUND: HISTORY: Left arm swelling and pain TECHNIQUE: Grayscale color-flow and spectral Doppler imaging of the deep venous systems of the left upper extrem ity was performed. FINDINGS: There is good flow, compression and normal spectral waveforms in the internal jugular, subclavian, ax illary, brachial, radial, ulnar, basilic and cephalic veins . IMPRESSION: No evidence of DVT in the left upper extremity.
== END 2020-02-07 10:05 | disposition home or self-care (01) ==
LOC: BICULT 10:04
PROVIDERS: ATTEND Family Medicine
DX: M79.602 Pain in left arm (principal); M79.89 Other specified soft tissue disorders

== ENCOUNTER 2021-01-06 07:45 | Emergency (ER) | payer MEDICARE, BC ==
[2021-01-06] MEDS ORDERED: Aspirin Chewable 81 MG TAB ONE (08:16)
[2021-01-06 08:21] LABS: #Eosinphils 0.2 thou/uL (0.0-0.7); #Monocytes 0.7 thou/uL (0.11-0.59); #Neutrophils 4.5 thou/uL (1.40-6.50); %Basophils 0.2 % (0.0-1.0); %Eosinophils 2.7 % (0.0-10.0); %Lymphocytes 15.1 % (21.0-51.0); %Monocytes 10.8 % (0.0-10.0); %Neutrophils 71.2 % (42.0-75.0); Hemoglobin 14.3 g/dL (14.0-18.0); Mean Corpuscular HGB CONC 32.5 g/dL (32.0-36.0); Mean Corpuscular Hemoglobin 31.1 pg (27.0-31.0); Mean Corpuscular Volume 95.7 fL (78.0-98.0); Platelet Count 214 thou/uL (130-400); RBC Distribution Width 12.9 % (11.5-14.5); Red Blood Cell (RBC) Count 4.61 mill/uL (4.70-6.10); White Blood Cell (WBC) Count 6.4 thou/uL (4.8-10.8)
[2021-01-06 08:43] LABS: ALT (SGPT) 32 U/L (8-55); AST (SGOT) 20 U/L (5-34); Alkaline Phosphatase 101 U/L (40-110); Anion Gap 11 mmol/L (10-20); BUN (Urea Nitrogen) 25 mg/dL (8.4-25.7); Bilirubin, Total 0.6 mg/dL (0.2-1.2); CK (CPK) 134 U/L (30-200); Calc. Creatinine Clearance 0 mL/min (70-130); Calcium 8.8 mg/dL (7.8-10.44); Carbon Dioxide 27 mmol/L (23-31); Chloride 105 mmol/L (98-107); Glucose 111 mg/dL (80-115); Lipase 20 U/L (8-78); Potassium 3.6 mmol/L (3.5-5.1); Sodium 139 mmol/L (136-145)
[2021-01-06 11:46] LABS: Troponin I Less than 0.010 ng/mL (< 0.028)
== END 2021-01-06 12:10 | disposition home or self-care (01) ==
LOC: ERS 07:45
DX: I20.9 Angina pectoris, unspecified (principal); J44.9 Chronic obstructive pulmonary disease, unspecified; I25.2 Old myocardial infarction; K21.9 Gastro-esophageal reflux disease without esophagitis; E78.5 Hyperlipidemia, unspecified; I11.0 Hypertensive heart disease with heart failure; I50.9 Heart failure, unspecified; E66.9 Obesity, unspecified; Z79.82 Long term (current) use of aspirin; Z79.899 Other long term (current) drug therapy
CPT/HCPCS: 36415; 71045; 80053; 82550; 83690; 83880; 84484; 85025; 93005; 94760

== ENCOUNTER 2023-05-13 08:05 | Outpatient (CLI) | payer MEDICARE, BC | END 2023-05-13 08:06 | disposition home or self-care (01) | LOC: CT 08:05 | PROVIDERS: ATTEND Urology | DX: R31.0 Gross hematuria (principal); N28.1 Cyst of kidney, acquired | CPT/HCPCS: 74178; 82565 ==

== ENCOUNTER 2023-10-29 14:15 | Emergency (ER) | payer MEDICARE, BC | END 2023-10-29 16:24 | disposition home or self-care (01) | LOC: ERS 14:15 | DX: S09.90XA Unspecified injury of head, initial encounter (principal); S01.01XA Laceration without foreign body of scalp, initial encounter; I11.0 Hypertensive heart disease with heart failure; I50.9 Heart failure, unspecified; J44.9 Chronic obstructive pulmonary disease, unspecified; I25.2 Old myocardial infarction; I48.91 Unspecified atrial fibrillation; E66.9 Obesity, unspecified; W20.8XXA Other cause of strike by thrown, projected or falling object, initial encounter; Z79.01 Long term (current) use of anticoagulants | CPT/HCPCS: 70450 ==

== ENCOUNTER 2023-11-25 16:00 | Outpatient (CLI) | payer MEDICARE, BC | END 2023-11-25 16:01 | disposition home or self-care (01) | LOC: SLEEPLAB 16:00 | PROVIDERS: ATTEND Family Medicine | DX: G47.33 Obstructive sleep apnea (adult) (pediatric) (principal); R06.83 Snoring; E66.9 Obesity, unspecified; J44.9 Chronic obstructive pulmonary disease, unspecified; I10 Essential (primary) hypertension; I25.10 Atherosclerotic heart disease of native coronary artery without angina pectoris; G47.10 Hypersomnia, unspecified; I48.91 Unspecified atrial fibrillation; G47.00 Insomnia, unspecified; Z68.37 Body mass index [BMI] 37.0-37.9, adult | CPT/HCPCS: 95811 ==